=== PATIENT | male | born 1980 | race Caucasian/White ===

== ENCOUNTER 2020-04-08 13:27 | Emergency (ER) | payer OTHER, SELFPAY ==
--- NOTE | ~2020-04-08 | XR_ITS ---
EXAMINATION: XR chest 2V 04/08/2020 14:19 INDICATION: Heart fluttering. Dyspnea. PROCEDURE: 2 view chest COMPARISON: Comparison to multiple prior studies sequentially, with oldest reviewed study dated 07/2012. FINDINGS: The lungs are clear. The cardiomediastinal silhouette is within normal limits. There are no pleural effusions. There is no pneumothorax suspected. IMPRESSION: 1: NO ACUTE CARDIOPULMONARY DISEASE. Reviewed, dictated and finalized at location A.
[2020-04-08 13:31] VITALS: BP 153/100; PULSE 110; RESP 18; TEMP 36.9; O2SAT 100
--- NOTE | 2020-04-08 13:31 | ECG_ITS ---
Measurements Intervals [place] Rate: 96 P: 40 WV: 229 QRS: 46 QRSD: 93 T: 31 QT: 326 QTc: 414 Interpretive Statements SINUS RHYTHM WITH FIRST DEGREE AV BLOCK INCOMPLETE RIGHT BUNDLE BRANCH BLOCK ABNORMAL ECG Electronically Signed On 04-08-2020 14:05:25 CDT by Giovany Rock D.O.
[2020-04-08] MEDS: ASPIRIN 81 MG CHEWABLE TABLET 324 MG PO (13:52)
[2020-04-08 14:02] LABS: Basophils Percent Auto 0.3 % (0.2-1.2); Eosinophils Absolute Auto 0.1 K/mm3 (0-0.3); Eosinophils Percent Auto 1.3 % (0-4.4); Hematocrit 45.1 % (42.0-52.0); Hemoglobin 15.7 g/dL (14.0-18.0); Immature Granulocyte Absolute 0.02 K/mm3 (0.00-0.031); Immature Granulocyte Percent A 0.3 % (0-0.5); Lymphocytes Percent Auto 26.9 % (18.3-44.2); Mean Corpuscular HGB Conc 34.8 g/dl (32-36); Mean Corpuscular Hemoglobin 33.2 pg (26-34); Mean Corpuscular Volume 95.3 fl (80-100); Mean Platelet Volume 10.3 fl (7.4-10.4); Monocytes Absolute Auto 0.7 K/mm3 (0.1-0.6); Monocytes Percent Auto 11.4 % (2.6-8.5); Neutrophils Absolute Auto 3.8 K/mm3 (1.3-6.7); Neutrophils Percent Auto 59.8 % (45.5-73.1); Platelet Count Result 145 k/mm3 (150-375); Red Blood Count 4.73 M/mm3 (4.6-6.20); Red Cell Distribution Width 13.2 % (11.5-14.5); White Blood Count 6.3 K/mm3 (4.5-10.0)
[2020-04-08 14:11] LABS: INR 1.4
[2020-04-08 14:12] LABS: Partial Thromboplastin Time 35.1 SECONDS (22.3-36.8)
[2020-04-08 14:13] LABS: Blood Urea Nitrogen 16 mg/dL (9-20); Calcium 9.4 mg/dL (8.4-10.2); Carbon Dioxide 25 mmol/L (22-30); Chloride 104 mmol/L (98-107); Estimated CRCL calculation 117 ml/min; Estimated Glomerular Filt Rate > 60; Glucose 102 mg/dL (75-110); Potassium 3.6 mmol/L (3.4-5.0); Sodium 137 mmol/L (137-145)
--- NOTE | 2020-04-08 14:23 | ED.GENADULT ---
HPI - General Adult General Chief complaint: Arrhythmia/Palpitations Stated complaint: HEART FLUTTERING, SHAKING Time Seen by Provider: 04/08/20 13:48 History of Present Illness HPI narrative: Patient is a 39 y/o male complaining of heart palpitation and hand shaking for last 2 days. He states that his palpitation is mild and there is no alleviating or exacerbating factor. He denies any chest pain, SOB or fever. He has some mild chronic cough. He states he is on Xarelto for history of PE. Related Data Home Medications Medication Instructions Recorded Confirmed rivaroxaban 20 mg tablet 20 mg PO DAILY 09/21/19 venlafaxine 75 mg capsule,extended 75 mg PO BID cap 09/21/19 release 24 hr Allergies Allergy/AdvReac Type Severity Reaction Status Date / Time Sulfa (Sulfonamide Allergy Unknown Unknown Verified 04/08/20 13:33 Antibiotics) sulfamethizole Allergy Unknown Skin Verified 04/08/20 13:33 Reaction Review of Systems Constitutional: Constitutional: Denies chills, Denies fever(s), Denies headache(s) and Denies weakness Eyes: Eyes: Denies blurry vision ENT: Denies headache(s) and Denies neck pain Cardiovascular: Cardiovascular: Denies chest pain, Reports rapid heart rate and Denies dyspnea Respiratory: Respiratory: Denies cough and Denies dyspnea Gastrointestinal: Gastrointestinal: Denies abdominal pain, Denies diarrhea, Denies nausea and Denies vomiting Genitourinary: Genitourinary: Denies hematuria and Denies dysuria Musculoskeletal: Musculoskeletal: Denies back pain and Denies neck pain Neurologic: Denies headache(s), Reports tremor(s) (hands shaky) and Denies weakness [facility] Past Medical History Medical History (Updated 04/08/20 @ 17:59 by Alana Hood MD) Pulmonary embolism Social History Social History Smoking status: Never smoker Alcohol intake: current Gender identity (if verbalized by the patient): Male Exam Const: General: no acute distress and well developed Orientation/consciousness: oriented to person, oriented to place, oriented to time and patient oriented x3 HENMT: Head: normocephalic Ears: external ears normal General nose exam: Normal external nose present Eyes: General: appearance normal, both eyes and all related structures Conjunctivae: conjunctivae normal Neck: Neck: normal visual inspection and full ROM Chest: Chest palpation & inspection: normal inspection of the chest and no tenderness Resp: Effort & Inspection: normal respiratory effort Auscultation: clear to auscultation bilaterally Cardio: Rate: tachycardic Rhythm: regular rhythm GI: GI Palp: No abdominal tenderness and Yes Soft to palpation Skin: General skin exam: normal color and turgor normal Neuro: General: oriented to person, oriented to place, oriented to time and patient oriented x3 Cognition (Neuro): normal cognition Extrem: General: normal to inspection, full ROM and no pedal edema Psych: Appearance: grossly normal Mental Status: mental status grossly normal Affect: normal affect Course Consultations Consultation #1: Discussed with Dr. Romeo(PCP), who recommends starting Toprol 25 mg daily and have patient follow up with him in a few days. Date: 04/08/20 Time: 17:48 Vital Signs Vital signs: Vital Signs Temperature 36.9 C 04/08/20 13:31 Pulse Rate 110 H 04/08/20 13:31 Respiratory Rate 18 04/08/20 13:31 Blood Pressure 153/100 H 04/08/20 13:31 Pulse Oximetry 100 04/08/20 13:31 Temperature 36.9 C 04/08/20 13:31 Pulse Rate 106 H 04/08/20 18:18 Respiratory Rate 18 04/08/20 18:18 Blood Pressure 167/102 H 04/08/20 18:18 Pulse Oximetry 98 04/08/20 18:18 Medical Decision Making Vital Signs Vital Signs: Vital Signs Temperature 36.9 C 04/08/20 13:31 Pulse Rate 110 H 04/08/20 13:31 Respiratory Rate 18 04/08/20 13:31 Blood Pressure 153/100 H 04/08/20 13:31 Pulse Oximetry 1
[2020-04-08 14:25] LABS: Troponin I < 0.012 ng/mL (0.000-0.034)
[2020-04-08 14:37] VITALS: BP 143/99; PULSE 98; RESP 19; O2SAT 97
[2020-04-08 15:42] VITALS: BP 147/97; PULSE 94; RESP 15; O2SAT 97
[2020-04-08 16:43] VITALS: BP 150/93; PULSE 94; RESP 17; O2SAT 99
[2020-04-08 17:12] LABS: Troponin I < 0.012 ng/mL (0.000-0.034)
[2020-04-08 18:18] VITALS: BP 167/102; PULSE 106; RESP 18; O2SAT 98
== END 2020-04-08 18:28 | disposition home or self-care (01) ==
PROVIDERS: Emergency Provider Emergency Medicine; PCP Family Medicine
DX: R00.2 Palpitations (principal); R25.9 Unspecified abnormal involuntary movements; Z86.711 Personal history of pulmonary embolism; Z79.01 Long term (current) use of anticoagulants; I44.0 Atrioventricular block, first degree; I45.10 Unspecified right bundle-branch block
CPT/HCPCS: 36415; 71046; 80048; 84443; 84484; 85025; 85610; 85730; 93005; 99284; A9270

== ENCOUNTER 2021-05-09 11:38 | Emergency (ER) | payer OTHER, SELFPAY ==
--- NOTE | ~2021-05-09 | CT_ITS ---
EXAMINATION: CT brain wo con DATE: 05/09/2021 12:30 INDICATION: Fall, striking forehead. Frontal headache. Patient on anticoagulant therapy. TECHNIQUE: Computed tomography (CT) of the head was performed without intravenous contrast. The mA wa s adjusted according to patient size. Iterative reconstruction technique was employed. Exam dose: 68 1.00 mGy-cm total exam DLP. COMPARISON: December 29, 2008 MRI brain/brainstem FINDINGS: No intracranial mass lesion or hemorrhage or cerebrovascular accident. No midline shift or mass effect effect. Normal ventricular size. No subdural or epidural hematoma. No fracture or bone destruction of the cranial vault. Included paranasal sinuses and mastoid air cells are unremarkable. IMPRESSION: No significant abnormality Reviewed, dictated and finalized at Location A. Reviewed, dictated and finalized at location A. IMPRESSION: No significant abnormality
[2021-05-09 12:00] VITALS: BP 174/98; PULSE 96; RESP 20; TEMP 35.9; O2SAT 100
--- NOTE | 2021-05-09 13:09 | ED.HEATRA ---
HPI - Head Injury General Chief complaint: Head Injury Stated complaint: head injury Time Seen by Provider: 05/09/21 12:59 Source: patient Mode of arrival: ambulatory Limitations: no limitations History of Present Illness HPI Narrative: Patient is a 40 year old male who presents with complaints of headache after fall. Patient reports trip and fall hitting table with forehead last pm. Patient reports he is on Xarelto because of PE in the past. He denies LOC. He denies neck pain or other injuries. Patient reports mild nausea which has resolved at this time. Patient denies other significant medical history. MD Complaint: head injury and fall Related Data Allergies Allergy/AdvReac Type Severity Reaction Status Date / Time Sulfa (Sulfonamide Allergy Unknown Unknown Verified 05/09/21 12:06 Antibiotics) sulfamethizole Allergy Unknown Skin Verified 05/09/21 12:06 Reaction Review of Systems Review of Systems: Narrative: CONSTITUTIONAL: Denies fever, chills, or sweats. EYES: Denies visual changes, redness, or discharge. ENT: Denies rhinorrhea, congestion, sore throat, or otalgia. CARDIOVASCULAR: Denies chest pain, palpitations, or edema. RESPIRATORY: Denies cough or dyspnea. GASTROINTESTINAL: Denies abdominal pain, nausea, vomiting, or diarrhea. GENITOURINARY: Denies dysuria or hematuria. SKIN: Denies rash or itching. MUSCULOSKELETAL: Denies back pain, joint pain, or myalgia. NEUROLOGIC: Reports headache and lightheaded PSYCHIATRIC: Denies anxiety or depression. [facility] Past Medical History Medical History Pulmonary embolism Pulmonary embolism Strain of lumbar region Unspecified internal derangement of knee Venous embolism and thrombosis Social History Social History Smoking status: Never smoker Second hand tobacco smoke exposure: No Alcohol intake: current Drinks per week: 8 Substance use: never Substance use type: does not use Gender identity (if verbalized by the patient): Male Spiritual care concerns: No Agree to blood products: Yes Comments At the time of signature, I have reviewed and agree with nursing past medical, surgical, social, and family history unless otherwise noted. Please see nursing chart for further information. There is no relevant family history pertinent to the presenting complaint. Exam Narrative: Exam Narrative: GENERAL: Well-appearing, well-nourished, and in no acute distress. HEAD: Normocephalic, atraumatic. EYES: EOMI. No redness or drainage. Conjunctiva are normal. ENT: Mucous membranes pink and moist. CHEST: No respiratory distress. Clear to auscultation. HEART: Regular rate and rhythm. No murmur appreciated. Normal peripheral pulses. GI: Soft, nontender without rebound, or guarding. No distention. Bowel sounds normal in all quadrants. MUSCULOSKELETAL: No bony tenderness. EXTREMITIES: Normal range of motion. SKIN: Small abrasion to left forehead noted. NEURO: No focal deficits. Alert and oriented x3. Gait steady. PSYCH: Normal affect. No signs of depression or anxiety. Course Course Emergency Course: Patient left without discharge papers 1323. Vital Signs Vital signs: Vital Signs Temperature 35.9 C L 05/09/21 12:00 Pulse Rate 96 05/09/21 12:00 Respiratory Rate 20 05/09/21 12:00 Blood Pressure 174/98 H 05/09/21 12:00 Pulse Oximetry 100 05/09/21 12:00 Temperature 35.9 C L 05/09/21 12:00 Pulse Rate 96 05/09/21 12:00 Respiratory Rate 20 05/09/21 12:00 Blood Pressure 174/98 H 05/09/21 12:00 Pulse Oximetry 100 05/09/21 12:00 Reviewed. Patient has been instructed to follow-up with his PCP regarding his blood pressure. MDM - Head Injury MDM Narrative Medical decision making narrative: Patient CT shows no abnormality or bleed. Discussed with patient likely concussion. Discussed taking Tylenol for pain and re
== END 2021-05-09 13:24 | disposition home or self-care (01) ==
PROVIDERS: Emergency Provider Nurse Practitioner; PCP Family Medicine
DX: S09.90XA Unspecified injury of head, initial encounter (principal); Z86.711 Personal history of pulmonary embolism; Z79.01 Long term (current) use of anticoagulants; W01.190A Fall on same level from slipping, tripping and stumbling with subsequent striking against furniture, initial encounter
CPT/HCPCS: 70450; 99284

== ENCOUNTER 2021-10-22 07:28 | Outpatient (CLI) | payer OTHER, SELFPAY ==
--- NOTE | ~2021-10-22 | XR_ITS ---
EXAMINATION: XR chest 2V 10/22/2021 09:32 INDICATION: Palpitations. Cough. PROCEDURE: 2 view chest COMPARISON: 04/08/2020 FINDINGS: The lungs are clear. The cardiomediastinal silhouette is within normal limits. There are no pleural effusions. There is no pneumothorax suspected. IMPRESSION: 1: NO ACUTE CARDIOPULMONARY DISEASE. Reviewed, dictated and finalized at location A. THODONTIST
--- NOTE | 2021-10-22 08:03 | ECHO_ITS ---
Patient Info Name: Zion León Age: 40 years : 1980 Gender: Male Ht: 76 in Wt: 270 lbs BSA: 2.59 m2 HR: 104 bpm BP: 168 / 114 mmHg Technical Quality: Good Exam Date: 10/22/2021 8:17 AM Exam Location: [facility] Patient Status: Outpatient Admit Date: 10/22/2021 Staff Ordering Physician: Carito Romeo MD Acute Coordinator: Robert Patel, RENATE, RT Attending Provider: Carito Romeo MD Referring Physician: Agueda KAT; Exam Type: CA echo doppler color flow Study Info Indications R00.2 - Palpitations Complete two-dimensional, color flow and Doppler transthoracic echocardiogram is performed. Strain analysis performed. Summary 1. Complete two-dimensional, color flow and Doppler transthoracic echocardiogram is performed. 2. Left ventricular chamber dimension is normal. 3. Left ventricular systolic function is normal, estimated at 55-60%. 4. There is mildly increased left ventricular wall thickness. 5. The left ventricular diastolic function is grade I diastolic dysfunction. 6. E/e' 5 is not elevated. 7. Global longitudinal strain is abnormal at -14.6%. 8. There is trace tricuspid valve regurgitation. 9. The aortic root size at the sinus of Valsalva is moderately dilated at 4.7 cm. Left Ventricle E/e' 5 is not elevated. Global longitudinal strain is abnormal at -14.6%. Left ventricular chamber dimension is normal. Left ventricular systolic function is normal, estimated at 55-60%. There is mildly increased left ventricular wall thickness. The left ventricular diastolic function is grade I diastolic dysfunction. Right Ventricle Right ventricular systolic function is normal and with normal TAPSE 2.3 cm. Right ventricular chamber dimension is normal. Left Atria Left atrial chamber dimension is normal. Right Atria Right atrial chamber dimension is normal. Aortic Valve The aortic valve is trileaflet. There is no aortic valve stenosis. There is no aortic valve regurgitation. Pulmonic Valve There is no pulmonic regurgitation. Mitral Valve There is no mitral valve stenosis. There is no mitral valve regurgitation. Tricuspid Valve RVSP is not calculated due to an inadequate TR jet. There is trace tricuspid valve regurgitation. Pericardium/Pleural There is no pericardial effusion. Inferior Vena Cava Normal inferior vena cava with >50% collapse upon inspiration consistent with normal right atrial pressure, 5 mmHg. Aorta The aortic root size at the sinus of Valsalva is moderately dilated at 4.7 cm. Left Ventricular Outflow Tract Name Value Normal LVOT 2D LVOT Diameter 2.5 cm LVOT Doppler LVOT Peak Gradient 2 mmHg LVOT Mean Gradient 1 mmHg LVOT VTI 12 cm LVOT VTI/AV VTI Ratio 0.9 LVOT Stroke Volume 62 ml LVOT CO 5.9 l/min LVOT CI 2.3 l/min/m2 Mitral Valve
--- NOTE | 2021-10-22 13:17 | PFT_ITS ---
The report was recreated on November 07, 2021. Original report was signed by Dr. Farhat Rivera on October 22, 2021 at 1317. PFT Procedure Performed PFT Procedure Performed Spirometry with Pre/Post Bronchodilator Plethysmography (Lung Vol) Diffusing Cap (DLCO) Flow Vol Loop PFT Interpretation This is a pulmonary function test with pre and post-bronchodilator spirometry, plethysmography and diffusing capacity. The test was performed and results interpreted in accordance with the 2019 and 2005 ATS/ERS Task Force guidelines respectively using the Global Lung Function Initiative-2012 reference equations. Patient demonstrated good effort and cooperation. Reproducibility criteria were met. The quality of the pre bronchodilator spirometry maneuver was Grade A and post bronchodilator spirometry maneuver was Grade A. Findings: Spirometry: The contour the inspiratory and expiratory flow tracing are normal. The pre bronchodilator FVC is 5.79 L, 108% predicted. The pre bronchodilator FEV1 is 4.54 L, 106% predicted. The FEV1: FVC ratio is 78%. The post bronchodilator FVC is 5.83 L, representing 1% increase. The post bronchodilator FEV1 is 4.77, representing a 5% increase. The post bronchodilator FEV1: FVC ratio was 82%. Plethysmography: The total lung capacity is 8.18 L, 114% predicted. The functional residual capacity is 2.69 L, 69% predicted. The residual volume is 2.21 L, 108% predicted. Diffusing capacity: The absolute diffusion capacity is 29.7, 85% predicted. The diffusing capacity corrected for alveolar volume is 4.08, 91% predicted. Impression: The spirometry is normal without evidence of an obstructive abnormality. There is no significant improvement after inhaling a single dose of albuterol. The lung volumes are normal. The diffusing capacity is normal. There are no prior studies for comparison This dictation may have been done utilizing a voice recognition system. Attempts have been made to correct errors. However, there may be uncorrected grammatical, spelling, and recognition errors present. Report Initialized date/time: Farhat Rivera MD 10/22/217 Electronically signed by: Farhat Rivera MD 10/22/21 1317 This dictation may have been done utilizing a voice recognition system. Attempts have been made to correct errors. However, there may be uncorrected grammatical, spelling, and recognition errors present. Dictated By: Farhat Rivera MD 10/22/21 1317 MTDD
== END 2021-10-22 07:29 | disposition home or self-care (01) ==
PROVIDERS: PCP Family Medicine; Visit Provider Family Medicine
DX: R00.2 Palpitations (principal); Z86.711 Personal history of pulmonary embolism; R06.02 Shortness of breath
CPT/HCPCS: 71046; 93306; 94060; 94726; 94729

== ENCOUNTER → 2022-09-09 09:35 | Outpatient (CLI) | payer OTHER, SELFPAY ==
--- NOTE | ~2022-09-09 | US_ITS ---
EXAMINATION: US abdomen limited DATE: 09/09/2022 09:54 INDICATION: Abdominal pain. TECHNIQUE: Multiple grayscale and Doppler ultrasound images of the abdomen were obtained. COMPARISON: Chest CT 04/09/2012 FINDINGS: The visualized portions of the head and body of the pancreas are normal. There is diffuse h epatic steatosis. No liver surface nodularity. There is normal flow in main portal vein. The gallblad terri is normal in size. No gallstones or gallbladder wall thickening. There is no sonographic Patel s ign. The common duct is normal and measures 3 mm. IMPRESSION: 1. Diffuse hepatic steatosis. Reviewed, dictated and finalized at location A. YSIS SPECIALIST
== END ==
PROVIDERS: PCP Family Medicine; Visit Provider Family Medicine
DX: K76.0 Fatty (change of) liver, not elsewhere classified (principal)
CPT/HCPCS: 76705

== ENCOUNTER 2022-11-05 07:50 | Outpatient (CLI) | payer OTHER, SELFPAY ==
--- NOTE | ~2022-11-05 | NM_ITS ---
EXAMINATION: NM hepatobiliary wo pharm DATE: 11/05/2022 10:06 INDICATION: Episodic severe abdominal pain. COMPARISON: Ultrasound 09/09/2022 TECHNIQUE: 5.0 mCi Tc-99m mebrofenin (Choletec) was administered intravenously. Scintigraphic images of the abdomen were obtained for one hour. Then, the patient drank 8 oz Ensure, and imaging was cont inued for 60 minutes. FINDINGS: There is normal clearance of radiotracer from the blood pool. There is homogeneous tracer u ptake by the liver. Activity progresses to the bowel and gallbladder. Gallbladder ejection fraction (GBEF) was 57%. Note that with this technique, normal GBEF >= 33%. IMPRESSION: 1. Normal hepatobiliary scintigraphy. Reviewed, dictated and finalized at location A. E[employer]OR [employer]ERC[employer]ENCE
== END 2022-11-05 07:51 | disposition home or self-care (01) ==
PROVIDERS: PCP Family Medicine; Visit Provider Family Medicine
DX: R10.9 Unspecified abdominal pain (principal)
CPT/HCPCS: 78226; A9537

== ENCOUNTER 2022-11-11 16:07 | Emergency (ER) | payer OTHER, SELFPAY ==
[2022-11-11] VITALS (8 sets, daily range): BP systolic 118–139; BP diastolic 68–83; PULSE 105–134; RESP 15–98; TEMP 36.4; O2SAT 97–99
--- NOTE | ~2022-11-11 | CT_ITS ---
EXAMINATION: CT abdomen pelvis w con DATE: 11/11/2022 17:24 INDICATION: Abdominal pain. Nausea and vomiting. TECHNIQUE: Computed tomography (CT) of the abdomen and pelvis was performed with 100 mL Omnipaque 350 intravenous contrast. Automated exposure control and iterative reconstruction technique were employe d. The dose-length product was 1441.20 mGy-cm. COMPARISON: Ultrasound abdomen 09/09/2022 FINDINGS: The visualized portions of the lung bases demonstrate minimal atelectasis on the left. No p leural effusion. The heart size is normal. No pericardial effusion. There is diffuse hepatic steatosi s. The gallbladder, spleen, pancreas, adrenal glands, and kidneys are normal. There are no dilated lo ops of bowel. There is diverticulosis of the colon without evidence of diverticulitis. The appendix i s not visualized. There is an umbilical hernia containing fat. There is a left inguinal hernia contai rosasna fat. There are no pathologically enlarged lymph nodes. There is no free intraperitoneal fluid. T here is severe spondylosis at L4-L5 and mild spondylosis at other levels. IMPRESSION: 1. Diffuse hepatic steatosis. 2. Umbilical hernia containing fat. 3. Left inguinal hernia containing fat. Reviewed, dictated and finalized at location E. HANA DEVELOPER
[2022-11-11 16:32] LABS: Basophils Percent Auto 0.6 % (0.2-1.2); Eosinophils Percent Auto 0.3 % (0-4.4); Hematocrit 43.2 % (42.0-52.0); Hemoglobin 13.9 g/dL (14.0-18.0); Immature Granulocyte Absolute 0.02 K/mm3 (0.00-0.031); Immature Granulocyte Percent A 0.3 % (0-0.5); Lymphocytes Absolute Auto 2.48 K/mm3 (0.9-3.2); Lymphocytes Percent Auto 35.2 % (18.3-44.2); Mean Corpuscular HGB Conc 32.2 g/dl (32-36); Mean Corpuscular Hemoglobin 26.8 pg (26-34); Mean Corpuscular Volume 83.2 fl (80-100); Monocytes Absolute Auto 0.6 K/mm3 (0.1-0.6); Monocytes Percent Auto 7.9 % (2.6-8.5); Neutrophils Absolute Auto 3.9 K/mm3 (1.3-6.7); Neutrophils Percent Auto 55.7 % (45.5-73.1); Platelet Count Result 227 k/mm3 (150-375); Red Blood Count 5.19 M/mm3 (4.6-6.20); Red Cell Distribution Width 18.5 % (11.5-14.5); White Blood Count 7.1 K/mm3 (4.5-10.0)
[2022-11-11 16:43] LABS: Alanine Aminotransferase 138 U/L (6-50); Albumin Level 4.8 g/dL (3.5-5.1); Alkaline Phosphatase 120 U/L (38-126); Anion Gap 16 mmol/L (8-16); Aspartate Amino Transferase 121 U/L (17-59); Bilirubin,Total 0.8 mg/dL (0.2-1.3); Blood Urea Nitrogen 5 mg/dL (9-20); Calcium 8.7 mg/dL (8.4-10.2); Carbon Dioxide 20 mmol/L (22-30); Chloride 103 mmol/L (98-107); Estimated CRCL calculation 110 ml/min; Estimated Glomerular Filt Rate > 60; Glucose 131 mg/dL (65-110); Lipase 121 U/L (23-300); Potassium 3.5 mmol/L (3.4-5.0); Sodium 139 mmol/L (137-145)
[2022-11-11 16:52] LABS: Platelet Estimate Adequate (Adequate)
[2022-11-11 16:53] LABS: Schistocytes None Seen (NORMAL)
--- NOTE | 2022-11-11 16:55 | ED.GENADULT ---
HPI - General Adult General Chief complaint: Nausea/Vomiting/Diarrhea Stated complaint: vomiting Time Seen by Provider: 11/11/22 16:15 Source: RN notes reviewed History of Present Illness HPI narrative: Patient presents emergency department from home for abdominal pain. Patient states he has been having ongoing abdominal pain issues for the past 1 year but states they have worsened over the past 12 hours states abdominal pain is located across the bilateral upper abdomen described as achy in nature and does not radiate associate with numerous episodes of nausea vomiting. Denies any fevers or chills chest pain shortness of breath diarrhea or any other symptoms states he has had work-up to include gallbladder ultrasound and work-up by GI he states he was recently prescribed omeprazole and take the first dose today patient does no regular alcohol use Related Data Home Medications Medication Instructions Recorded Confirmed apixaban 2.5 mg tablet (Eliquis) mg 11/11/22 lisinopril 10 mg tablet mg 11/11/22 omeprazole 40 mg capsule,delayed mg 11/11/22 release paroxetine HCl 25 mg mg PO 11/11/22 tablet,extended release 24 hr Allergies Allergy/AdvReac Type Severity Reaction Status Date / Time Sulfa (Sulfonamide Allergy Unknown Unknown Verified 11/11/22 19:33 Antibiotics) sulfamethizole Allergy Unknown Skin Verified 11/11/22 19:33 Reaction Review of Systems Review of Systems: Gen.: Denies fevers or chills ENT: Denies congestion Respiratory: Denies shortness of breath or cough CV: Denies chest pain or palpitations GI: See HPI Musculoskeletal: Denies back pain or muscle pain Neuro: Denies numbness, tingling, weakness or focal weakness Skin: Denies rash Except as documented, all other systems reviewed and negative PMF Past Medical History Medical History Palpitations Pulmonary embolism Pulmonary embolism Strain of lumbar region Unspecified internal derangement of knee Venous embolism and thrombosis Social History Social History Smoking status: Never smoker Second hand tobacco smoke exposure: No Alcohol intake: current Drinks per week: 8 Substance use: never Substance use type: does not use Gender identity (if verbalized by the patient): Male Spiritual care concerns: No Agree to blood products: Yes Exam Narrative: APPEARANCE: No acute distress, nontoxic, resting in bed HEENT: Normocephalic, atraumatic, OMM RESPIRATORY: No respiratory distress, clear to auscultation bilaterally with no rhonchi wheezing or rales CARDIOVASCULAR: RRR s murmur ABDOMINAL: Soft nondistended tender to palpation right upper quadrant and left upper quadrant no tenderness in the right lower quadrant and left lower quadrant MUSCULOSKELETAl: Moves all extremities. No clubbing, cyanosis or edema. NEURO: Awake and alert. Following commands, speech normal, no focal deficits SKIN:: Warm, dry. Normal Color PSYCHIATRIC: Normal affect/mood Course Course Emergency Course: Reviewed old records patient's liver enzymes are consistent with prior Patient states he is feeling much better at this time. He is able to eat and drink in the ED with no emesis. Discussed with the patient has mild tachycardia and revealed records patient has consistently mild tachycardia and states that he does have mildly best heart rate at all times Patient states that they are feeling much better at this time. States abdominal pain has resolved. Repeat abdominal exam shows the patient's abdomen to be soft and nontender. Discussed with patient results of workup and diagnosis. Discussed need for follow-up with primary care physician, reasons to return to the emergency department in proper use of medication. Patient understands and agrees to current treatment plan. He did take his first dose of omeprazole today states he does have a pre
[2022-11-11] MEDS: ONDANSETRON INJ 4 MG/2 ML VIAL IV PUSH (17:02)
[2022-11-11] MEDS: SODIUM CHLORIDE 0.9% IV 1,000 ML 999 ML IV CONT ×2 (17:02→18:10)
[2022-11-11] MEDS: FAMOTIDINE 20 MG/2 ML VIAL IV PUSH (17:03)
[2022-11-11 17:12] LABS: Appearance Urine Clear (Clear); Bilirubin Urine Negative (Negative); Blood Urine Trace-intact (Negative); Color Urine Yellow (Yellow); Glucose Urine UA Negative (Negative); Ketones Urine Trace mg/dL (Negative); Leukocyte Esterase Ur Negative LEU/UL (Negative); Nitrate Urine Negative (Negative); Protein Urine Trace mg/dL (Negative); Specific Grav Ur 1.015 (1.001-1.035); Urobilinogen Urine 0.2 mg/dL (<2.0)
[2022-11-11 17:17] LABS: Add Urine Microscopic? YES; Squamous Epithelial Cell Urine Rare /hpf (Few); WBC Urine 0-3 /hpf
[2022-11-11] MEDS: PROMETHAZINE HCL 25 MG/ML AMPUL 12.5 MG IV PUSH (18:22)
== END 2022-11-11 20:59 | disposition home or self-care (01) ==
PROVIDERS: Emergency Medicine; Emergency Provider Emergency Medicine; PCP Family Medicine
DX: R10.12 Left upper quadrant pain (principal); R10.11 Right upper quadrant pain; R11.2 Nausea with vomiting, unspecified; Z86.711 Personal history of pulmonary embolism; Z79.01 Long term (current) use of anticoagulants; K76.0 Fatty (change of) liver, not elsewhere classified; K40.90 Unilateral inguinal hernia, without obstruction or gangrene, not specified as recurrent; K42.9 Umbilical hernia without obstruction or gangrene
CPT/HCPCS: 36415; 74177; 80053; 81001; 83690; 85025; 96361; 96374; 96375; 99284; A9270; J2405; J2550; J7030; Q9967

== ENCOUNTER 2022-12-04 11:52 | Outpatient (CLI) | payer OTHER, SELFPAY ==
[2022-12-04 13:27] LABS: Alanine Aminotransferase 402 U/L (6-50); Albumin Level 4.5 g/dL (3.5-5.1); Alkaline Phosphatase 106 U/L (38-126); Aspartate Amino Transferase 438 U/L (17-59); Bilirubin,Total 0.9 mg/dL (0.2-1.3)
[2022-12-04 14:36] LABS: Iron 33 ug/dL (49-181)
[2022-12-04 14:47] LABS: Percent Iron Saturation 8 % (20-50)
[2022-12-07 20:46] LABS: Actin Antibody (IgG) <20 U (<20)
[2022-12-08 11:51] LABS: Mitochondrial (M2) Ab (IgG) <=20.0 U (<=20.0)
[2022-12-08 19:52] LABS: Alpha-1-Antitrypsin, QN 158 mg/dL (83-199); Ceruloplasmin 28 mg/dL (18-36)
[2022-12-08 21:36] LABS: LKM 1 Antibody <=20.0 U (<=20.0)
[2022-12-10 15:42] LABS: Alpha Fetoprotein Tumor Marker 6.2 ng/mL (<6.1)
[2022-12-14 19:28] LABS: ALT 278 U/L (9-46); Alpha-2-Macroglobulin 123 mg/dL (106-279); Apolipoprotein A1 145 mg/dL (94-176); Fibrosis Score 0.19; Fibrosis Stage F0; GGT 268 U/L (3-95); Haptoglobin 177 mg/dL (43-212); Necroinflammat Act Grade A3; Total Bilirubin 0.6 mg/dL (0.2-1.2)
== END 2022-12-04 11:53 | disposition home or self-care (01) ==
LOC: ANHLAB 11:53
PROVIDERS: PCP Family Medicine; Visit Provider Nurse Practitioner
DX: K76.0 Fatty (change of) liver, not elsewhere classified (principal); R10.9 Unspecified abdominal pain; R79.89 Other specified abnormal findings of blood chemistry
CPT/HCPCS: 36415; 80076; 81596; 82103; 82105; 82390; 82728; 83516; 83520; 83540; 83550; 86235; 86376

== ENCOUNTER 2022-12-08 16:04 | Outpatient (CLI) | payer OTHER, SELFPAY ==
[2022-12-08 16:36] LABS: Prothrombin Time 13.1 Seconds (11.1-14.7)
[2022-12-08 16:37] LABS: Creatine Kinase 95 U/L (55-170)
[2022-12-08 19:00] LABS: Hepatitis B Surface Antigen Negative (Negative)
[2022-12-08 19:05] LABS: HAV RESULT Negative (Negative); Hepatitis B Core IgM Result Negative (Negative)
[2022-12-08 19:17] LABS: Hepatitis C Virus Antibody Negative (Negative)
== END 2022-12-08 16:05 | disposition home or self-care (01) ==
LOC: ANHLAB 16:05
PROVIDERS: PCP Family Medicine; Visit Provider Nurse Practitioner
DX: R79.89 Other specified abnormal findings of blood chemistry (principal); K76.0 Fatty (change of) liver, not elsewhere classified
CPT/HCPCS: 36415; 80074; 82550; 85610; 86038

== ENCOUNTER 2023-01-08 01:56 | Day surgery (SDC) | payer OTHER, SELFPAY ==
[2022-12-30 09:16] VITALS: BMI 34.4
[2023-01-08 11:58] VITALS: BP 143/103; PULSE 104; RESP 18; TEMP 36.2; O2SAT 99
[2023-01-08] MEDS: LACTATED RINGERS 1,000 ML 150 ML IV CONT (12:06)
--- NOTE | 2023-01-08 12:40 | WPDANESEPPF ---
Anes - Initial Pre Proc Eval Procedure: Operation Date: 01/08/23 13:15 Proposed Procedures p Esophagogastroduodenoscopy & Colonoscopy - Jamari Meyers MD Date/Time: 01/08/23 12:40 Surgeon: Jamari Meyers MD Pre Op Diagnosis: abdominal pain, [place] Patient Data Age: 42 Gender: M Height: 1.91 m Weight: 122.8 kg Last Vital Signs Temp 36.2 C L 01/08/23 11:58 Pulse 104 H 01/08/23 11:58 Resp 18 01/08/23 11:58 BP 143/103 H 01/08/23 11:58 Pulse Ox 99 01/08/23 11:58 O2 Del Method Room Air 01/08/23 11:58 Allergies Allergy/AdvReac Type Severity Reaction Status Date / Time Sulfa (Sulfonamide Allergy Intermediate Hives Verified 01/08/23 11:57 Antibiotics) sulfamethizole Allergy Unknown Hives Verified 01/08/23 11:57 Home Medications Medication Instructions Recorded Confirmed Type apixaban 2.5 mg tablet (Eliquis) 2.5 mg PO BID 11/11/22 12/30/22 History omeprazole 40 mg capsule,delayed 40 mg PO DAILY 11/11/22 12/30/22 History release ondansetron 4 mg disintegrating 4 mg PO Q6H PRN nausea and 11/11/22 12/30/22 Rx tablet vomiting #10 tabs paroxetine HCl 25 mg 25 mg PO DAILY 11/11/22 12/30/22 History tablet,extended release 24 hr lisinopril 10 mg tablet 10 mg PO DAILY #30 tabs 11/23/22 12/30/22 Rx vitamin E 1 cap PO DAILY 12/30/22 12/30/22 History Patient hx anesthesia problems: none Family hx anesthesia problems: none Results Review: All pre-operative results and documents have been reviewed as part of the pre-operative evaluation. [facility] Past Medical History Medical History Alcohol use Colon cancer screening Elevated LFTs Low serum iron Palpitations Pulmonary embolism Pulmonary embolism Strain of lumbar region Unspecified internal derangement of knee Upper abdominal pain Venous embolism and thrombosis Social History Social History Smoking status: Never smoker Second hand tobacco smoke exposure: No Alcohol intake: current Drinks per week: 4 Alcohol use details: DRINKS Substance use: never Substance use type: does not use Living arrangements: with family Occupation/Education: occupation Gender identity (if verbalized by the patient): Male Spiritual care concerns: No Agree to blood products: Yes Anes - Eval Final PreProcedure Day of Procedure 01/08/23 12:40 Heart: regular rate and rhythm Lungs: clear to auscultation Airway: Mallampati scale class II Neurological: alert and oriented Last oral intake: >/= 8 hours ASA classification: III Emergent: no Anesthetic plan: proceed Anesthesia type and monitoring: general GIVS and standard monitoring Results Review: All pre-operative results and documents have been reviewed as part of the pre-operative evaluation. Informed Consent: The patient's anesthetic plan and its attendant risks and benefits were discussed with the patient/family/POA. Questions were solicited and answers provided to the satisfaction of the patient/family/POA.
--- NOTE | 2023-01-08 13:15 | WPDHPUPDATE1 ---
History and Physical Update Update Date/Time: 01/08/23 13:15 History and Physical has been reviewed, including an updated exam of the patient. There are NO changes in the patient's condition. Risks, benefits, and alternatives have been discussed and questions answered. Patient agrees to proceed with procedure.
[2023-01-08 13:56] VITALS: BP 128/88; PULSE 109; RESP 20; O2SAT 100
[2023-01-08 14:06] VITALS: BP 124/86; PULSE 103; RESP 20; O2SAT 100
[2023-01-08 14:16] VITALS: BP 132/84; PULSE 92; RESP 20; O2SAT 100
== END 2023-01-08 14:30 | disposition home or self-care (01) ==
PROVIDERS: PCP Family Medicine; Visit Provider Internal Medicine Gastroenterology
PROC: 0DJ08ZZ Inspection of Upper Intestinal Tract, Via Natural or Artificial Opening Endoscopic (ICD-10-PCS; CPT 43235; principal; 2023-01-08 13:15)
DX: Z12.11 Encounter for screening for malignant neoplasm of colon (principal); R10.13 Epigastric pain; D12.3 Benign neoplasm of transverse colon; E61.1 Iron deficiency; K57.30 Diverticulosis of large intestine without perforation or abscess without bleeding; K44.9 Diaphragmatic hernia without obstruction or gangrene; K64.8 Other hemorrhoids; R79.89 Other specified abnormal findings of blood chemistry; Z86.718 Personal history of other venous thrombosis and embolism
CPT/HCPCS: 45385; 43239; 88305; J2704; J7120

== ENCOUNTER 2023-01-26 08:59 | Emergency (ER) | payer OTHER, SELFPAY ==
[2023-01-26] VITALS (14 sets, daily range): BP systolic 148–187; BP diastolic 98–110; PULSE 101–136; RESP 11–21; TEMP 36.8; O2SAT 97–100
--- NOTE | ~2023-01-26 | CT_ITS ---
EXAMINATION: CT brain wo con DATE: 01/26/2023 12:51 INDICATION: Headache. TECHNIQUE: Computed tomography (CT) of the head was performed without intravenous contrast. The mA wa s adjusted according to patient size. Iterative reconstruction technique was employed. The dose-lengt h product was 681.00 mGy-cm. 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 There is no intracranial hemorrhage, acute infarction, or abnormal intracranial mass lesion. The ventricles are normal in size. The orbits are normal. There is mild mucosal thickening in the eth moid sinuses. The mastoid air cells are normal. IMPRESSION: 1. 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 Reviewed, dictated and finalized at location A. IMPRESSION: 1. 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
--- NOTE | ~2023-01-26 | XR_ITS ---
EXAMINATION: XR chest 2V DATE: 01/26/2023 09:33 INDICATION: Weakness. Lightheadedness. TECHNIQUE: Frontal and lateral views of the chest were obtained. COMPARISON: Chest 2 views 10/22/2021, CT abdomen and pelvis 11/11/22 FINDINGS: The chest demonstrates clear lungs without pneumonia, pleural effusion, or pneumothorax. Th e heart size is normal. IMPRESSION: 1. No acute cardiopulmonary disease. Reviewed, dictated and finalized at location A.
--- NOTE | ~2023-01-26 | CT_ITS ---
EXAMINATION: CTA chest PE protocol DATE: 01/26/2023 15:29 INDICATION: Tachycardia TECHNIQUE: Computed tomography angiography (CTA) of the chest was performed with 100 mL Omnipaque-350 intravenous contrast timed to evaluate the pulmonary arteries. Coronal maximum intensity projection 3D-reconstructions were created by the technologist. The dose-length product (DLP) was 998.47 mGy-cm. Automated exposure control and iterative reconstruction technique were employed. COMPARISON: 04/09/2012 FINDINGS: The pulmonary arteries are well-opacified. There are eccentric filling defects in pulmonary arterial branches of the left lower lobe which likely reflect chronic emboli. No definite acute pulm onary embolus is identified. The lungs are free of acute opacities. No pleural effusion or pneumothor ax. No pathologically enlarged thoracic lymph nodes are identified. The heart size is normal. The jeyson er is diffusely low in attenuation when compared with the spleen, consistent with hepatic steatosis. There is mild thoracic spondylosis. IMPRESSION: 1. Areas of eccentric filling defects in pulmonary arterial branches of the left lower lobe, likely c hronic emboli. No definite acute pulmonary emboli identified. Reviewed, dictated and finalized at location F. IMPRESSION: 1. Areas of eccentric filling defects in pulmonary arterial branches of the lef t lower lobe, likely chronic emboli. No definite acute pulmonary emboli identif ied.
--- NOTE | 2023-01-26 09:02 | ECG_ITS ---
Measurements Intervals [place] Rate: 131 P: 238 MN: 155 QRS: 49 QRSD: 92 T: 40 QT: 310 QTc: 459 Interpretive Statements SINUS TACHYCARDIA BASELINE ARTIFACT- I, III, AVL ABNORMAL ECG COMPARED TO ECG 04/08/2020 13:46:45 SINUS TACHYCARDIA NOW PRESENT Electronically Signed On 01-26-2023 9:21:16 CDT by Giovany Rock D.O.
[2023-01-26 09:45] LABS: Basophils Percent Auto 0.3 % (0.2-1.2); Hematocrit 44.4 % (42.0-52.0); Hemoglobin 14.2 g/dL (14.0-18.0); Immature Granulocyte Absolute 0.03 K/mm3 (0.00-0.031); Immature Granulocyte Percent A 0.4 % (0-0.5); Lymphocytes Absolute Auto 0.68 K/mm3 (0.9-3.2); Lymphocytes Percent Auto 9.9 % (18.3-44.2); Mean Corpuscular Hemoglobin 27.2 pg (26-34); Mean Corpuscular Volume 85.1 fl (80-100); Mean Platelet Volume 10.8 fl (7.4-10.4); Monocytes Absolute Auto 0.5 K/mm3 (0.1-0.6); Monocytes Percent Auto 7.6 % (2.6-8.5); Neutrophils Absolute Auto 5.6 K/mm3 (1.3-6.7); Neutrophils Percent Auto 81.8 % (45.5-73.1); Platelet Count Result 200 k/mm3 (150-375); Red Blood Count 5.22 M/mm3 (4.6-6.20); Red Cell Distribution Width 14.8 % (11.5-14.5); White Blood Count 6.9 K/mm3 (4.5-10.0)
[2023-01-26 09:50] LABS: Alanine Aminotransferase 104 U/L (6-50); Alkaline Phosphatase 138 U/L (38-126); Anion Gap 19 mmol/L (8-16); Aspartate Amino Transferase 104 U/L (17-59); Bilirubin,Total 1.4 mg/dL (0.2-1.3); Blood Urea Nitrogen 13 mg/dL (9-20); Calcium 9.5 mg/dL (8.4-10.2); Carbon Dioxide 22 mmol/L (22-30); Chloride 98 mmol/L (98-107); Estimated CRCL calculation 132 ml/min; Estimated Glomerular Filt Rate > 60; Glucose 181 mg/dL (65-110); Lipase 106 U/L (23-300); Potassium 4.1 mmol/L (3.4-5.0); Sodium 139 mmol/L (137-145)
[2023-01-26 09:58] LABS: INR 1.1; Prothrombin Time 13.8 Seconds (11.1-14.7)
[2023-01-26 09:59] LABS: Partial Thromboplastin Time 28.6 SECONDS (22.3-36.8)
[2023-01-26 10:01] LABS: Troponin I < 0.012 ng/mL (0.000-0.034)
--- NOTE | 2023-01-26 12:31 | ED.GENADULT ---
HPI - General Adult General Chief complaint: Recheck/Abnormal Lab/Rx Stated complaint: high BP Time Seen by Provider: 01/26/23 11:55 History of Present Illness HPI narrative: 42-year-old male with history of hypertension presented to the emergency department for evaluation of hypertension, headache and diaphoresis. Patient states he was at a GI appointment this morning and he had onset of hypertension and felt very shaky. Patient was deferred to the emergency department for evaluation. Upon arrival to the ED patient does report he does have a headache. Patient states he has been taking his medication as directed. Patient denies any missing any doses. Patient's yesterday he had decreased p.o. intake and only had Gatorade this morning. Patient was not fasting for his appointment today. Patient denies any current chest pain or shortness of breath but patient does state he does feel lightheaded. Related Data Home Medications Medication Instructions Recorded Confirmed apixaban 2.5 mg tablet (Eliquis) 2.5 mg PO BID 11/11/22 01/26/23 paroxetine HCl 25 mg 25 mg PO DAILY 11/11/22 01/26/23 tablet,extended release 24 hr vitamin E 1 cap PO DAILY 12/30/22 01/26/23 Allergies Allergy/AdvReac Type Severity Reaction Status Date / Time Sulfa (Sulfonamide Allergy Intermediate Hives Verified 01/26/23 11:39 Antibiotics) sulfamethizole Allergy Unknown Hives Verified 01/26/23 11:39 Review of Systems Review of Systems: CONSTITUTIONAL: Denies fever, chills, or sweats. EYES: Denies visual changes, redness, or discharge. ENT: Denies rhinorrhea, congestion, sore throat, or otalgia. CARDIOVASCULAR: See HPI RESPIRATORY: Denies cough or dyspnea. GASTROINTESTINAL: Denies abdominal pain, nausea, vomiting, or diarrhea. GENITOURINARY: Denies dysuria or hematuria. SKIN: Denies rash or itching. MUSCULOSKELETAL: Denies back pain, joint pain, or myalgia. NEUROLOGIC: See HPI [facility] Past Medical History Medical History (Updated 01/26/23 @ 17:07 by Melvin Ireland MD) Alcohol use Colon cancer screening Elevated heart rate with elevated blood pressure and diagnosis of hypertension Elevated LFTs Elevated LFTs Epigastric pain Hx of adenomatous colonic polyps [place] (iron deficiency anemia) Low serum iron Palpitations Pulmonary embolism Pulmonary embolism Strain of lumbar region Unspecified internal derangement of knee Upper abdominal pain Venous embolism and thrombosis Vomiting Social History Social History Smoking status: Never smoker Second hand tobacco smoke exposure: No Alcohol intake: current Drinks per week: 4 Alcohol use details: DRINKS Substance use: never Substance use type: does not use Living arrangements: with family Occupation/Education: occupation Gender identity (if verbalized by the patient): Male Spiritual care concerns: No Agree to blood products: Yes Exam Narrative: APPEARANCE: Well appearing, no pain, no distress, well-nourished. HEAD: normocephalic, atraumatic. EYES: PERRLA/EOMI, conjunctivae clear. NOSE: Normal no drainage THROAT: Pharynx clear, no exudate. NECK: Supple. No adenopathy, no masses. RESPIRATORY: Airway patent, respirations nonlabored. Clear to auscultation bilaterally, no rales, rhonchi, wheezing. CARDIOVASCULAR: Regular rate and rhythm without murmurs rubs or gallops. ABDOMINAL: Soft, nontender, nondistended, normal bowel sounds MUSCULOSKELETAL: Moves all extremities. Strength/ROM intact, No edema, No calf tenderness. NEURO: Alert. Cranial nerves II through XII intact. Grossly intact SKIN: Warm, dry. Normal Color Course Course Emergency Course: Head CT will be ordered for the hypertension and headache in order to rule out intracranial abnormality due to no prior significant history of headaches. Chest pain protocol was started on arrival, patient's chest x-ray showed no acute cardiopulmonary disease. Patient wa
[2023-01-26] MEDS: SODIUM CHLORIDE 0.9% IV 1,000 ML 999 ML IV CONT ×2 (12:41→15:39)
[2023-01-26] MEDS: LORazepam INJ (*CRX) 2 MG/ML VIAL 0.5 MG IV PUSH (12:41)
[2023-01-26] MEDS: hydrALAZINE HCL 20 MG/ML VIAL 10 MG IV PUSH (12:42)
[2023-01-26 14:51] LABS: Troponin I < 0.012 ng/mL (0.000-0.034)
== END 2023-01-26 17:27 | disposition home or self-care (01) ==
PROVIDERS: Emergency Medicine; Emergency Provider Emergency Medicine; PCP Family Medicine
DX: R42 Dizziness and giddiness (principal); R00.0 Tachycardia, unspecified; I10 Essential (primary) hypertension; Z79.01 Long term (current) use of anticoagulants; Z86.718 Personal history of other venous thrombosis and embolism; Z86.711 Personal history of pulmonary embolism
CPT/HCPCS: 36415; 70450; 71046; 71275; 80053; 83690; 84484; 85025; 85610; 85730; 93005; 96361; 96374; 96375; 99284; J0360; J2060; J7030; Q9967

== ENCOUNTER 2023-07-05 18:46 | Emergency (ER) | payer OTHER, SELFPAY ==
--- NOTE | ~2023-07-05 | XR_ITS ---
Portable chest x-ray Comparison: 01/26/2023 Clinical History: Hypertension Findings: Lungs are clear, without focal consolidation or pleural effusion. Cardiomediastinal silho uette is stable. Bones and soft tissues are unremarkable. Impression: Clear lungs. Reviewed, dictated and finalized at location . Impression: Clear lungs.
[2023-07-05 18:54] VITALS: BP 186/124; PULSE 109; RESP 20; TEMP 36.6; O2SAT 97
--- NOTE | 2023-07-05 19:01 | ECG_ITS ---
Measurements Intervals [place] Rate: 109 P: 29 RI: 217 QRS: 36 QRSD: 91 T: 34 QT: 328 QTc: 442 Interpretive Statements SINUS TACHYCARDIA WITH FIRST DEGREE AV BLOCK POSSIBLE LEFT ATRIAL ENLARGEMENT BASELINE WANDER- V3-V6 BORDERLINE ECG COMPARED TO ECG 01/26/2023 09:06:27 HEART RATE HAS DECREASED FIRST DEGREE AV BLOCK NOW PRESENT Electronically Signed On 07-06-2023 7:02:21 CDT by Giovany Rock D.O.
--- NOTE | 2023-07-05 19:07 | ED.GENADULT ---
HPI - General Adult General Chief complaint: Unspecified Stated complaint: htn, shaky Time Seen by Provider: 07/05/23 18:56 History of Present Illness HPI narrative: 42-year-old male presented the emergency department for evaluation of hypertension and diaphoresis. Patient denied any associated chest pain with this. Patient reports he had been taking extra Eliquis and not taking his lisinopril as directed. Patient is unsure for how long he had been doing this. Patient noticed that he was having some elevated blood pressure today and first noticed that he had 2 bottles of Eliquis and no lisinopril. Related Data Home Medications Medication Instructions Recorded Confirmed apixaban 2.5 mg tablet (Eliquis) 2.5 mg PO BID 11/11/22 03/16/23 vitamin E 1 cap PO DAILY 12/30/22 03/16/23 Allergies Allergy/AdvReac Type Severity Reaction Status Date / Time Sulfa (Sulfonamide Allergy Intermediate Hives Verified 07/05/23 18:59 Antibiotics) sulfamethizole Allergy Unknown Hives Verified 07/05/23 18:59 Review of Systems Review of Systems: All systems reviewed & are unremarkable except as noted in HPI and below PMFSH Past Medical History Medical History Alcohol use Colon cancer screening Elevated heart rate with elevated blood pressure and diagnosis of hypertension Elevated LFTs Elevated LFTs Epigastric pain Hx of adenomatous colonic polyps [place] (iron deficiency anemia) Low serum iron Palpitations Pulmonary embolism Pulmonary embolism Strain of lumbar region Unspecified internal derangement of knee Upper abdominal pain Venous embolism and thrombosis Vomiting Social History Social History Smoking status: Never smoker Second hand tobacco smoke exposure: No Alcohol intake: current Drinks per week: 4 Alcohol use details: DRINKS Substance use: never Substance use type: does not use Lack of Transportation: No Lack of Food: Never True Current Housing: I Have Housing Concerned About Future Housing: No Difficulty Paying Gas/Electric Bills: No Difficulty Paying for Meds: No Currently Unemployed: No Education: Bachelor's Degree Difficulty w/ Childcare or Family Care: No Living arrangements: with family Occupation/Education: occupation Gender identity (if verbalized by the patient): Male Spiritual care concerns: No Agree to blood products: Yes Exam Narrative: APPEARANCE: Well appearing, no pain, no distress, well-nourished. HEAD: normocephalic, atraumatic. EYES: PERRLA/EOMI, conjunctivae clear. NOSE: Normal no drainage EARS:TMS clear with good light reflex. THROAT: Pharynx clear, no exudate. NECK: Supple. No adenopathy, no masses. RESPIRATORY: Airway patent, respirations nonlabored. Clear to auscultation bilaterally, no rales, rhonchi, wheezing. CARDIOVASCULAR: Regular rate and rhythm without murmurs rubs or gallops. ABDOMINAL: Soft, nontender, nondistended, normal bowel sounds MUSCULOSKELETAL: Moves all extremities. Strength/ROM intact, No edema, No calf tenderness. NEURO: Alert. Cranial nerves II through XII intact. Gross intact SKIN: Warm, dry. Normal Color Course Course Emergency Course: 42-year-old male presented ED for evaluation of hypertension and diaphoresis. Patient states he did feel improved with treatment of his blood pressure. Patient was treated with his home lisinopril along with hydralazine and follow-up. Patient had a negative cardiac work-up and states he felt improved. Patient was advised to continue to take his lisinopril was also encouraged of close follow-up with his primary care physician to see if he needs to have his medications to achieve better control over his blood pressure once he has been taking the lisinopril for a few days. All questions concerns were addressed and patient was well-appearing and improved at time of discharge from
[2023-07-05 19:16] LABS: Basophils Percent Auto 0.4 % (0.2-1.2); Hematocrit 41.8 % (42.0-52.0); Hemoglobin 13.3 g/dL (14.0-18.0); Immature Granulocyte Absolute 0.01 K/mm3 (0.00-0.031); Immature Granulocyte Percent A 0.2 % (0-0.5); Lymphocytes Absolute Auto 1.19 K/mm3 (0.9-3.2); Lymphocytes Percent Auto 23.1 % (18.3-44.2); Mean Corpuscular HGB Conc 31.8 g/dl (32-36); Mean Corpuscular Hemoglobin 25.7 pg (26-34); Mean Corpuscular Volume 80.9 fl (80-100); Mean Platelet Volume 10.4 fl (7.4-10.4); Monocytes Absolute Auto 0.6 K/mm3 (0.1-0.6); Monocytes Percent Auto 11.8 % (2.6-8.5); Neutrophils Absolute Auto 3.3 K/mm3 (1.3-6.7); Neutrophils Percent Auto 64.5 % (45.5-73.1); Platelet Count Result 138 k/mm3 (150-375); Red Blood Count 5.17 M/mm3 (4.6-6.20); Red Cell Distribution Width 17.5 % (11.5-14.5); White Blood Count 5.2 K/mm3 (4.5-10.0)
[2023-07-05 19:23] LABS: Glucose Point of Care 154 mg/dl (65-105)
[2023-07-05 19:27] LABS: Alanine Aminotransferase 120 U/L (6-50); Albumin Level 4.6 g/dL (3.5-5.1); Alkaline Phosphatase 104 U/L (38-126); Anion Gap 11 mmol/L (8-16); Aspartate Amino Transferase 115 U/L (17-59); Bilirubin,Total 1.5 mg/dL (0.2-1.3); Blood Urea Nitrogen 13 mg/dL (9-20); Calcium 10.1 mg/dL (8.4-10.2); Carbon Dioxide 27 mmol/L (22-30); Chloride 101 mmol/L (98-107); Estimated CRCL calculation 117 ml/min; Estimated Glomerular Filt Rate > 60; Glucose 129 mg/dL (65-110); Lipase 83 U/L (23-300); Potassium 3.3 mmol/L (3.4-5.0); Sodium 139 mmol/L (137-145)
[2023-07-05 19:28] LABS: Partial Thromboplastin Time 26.5 SECONDS (22.3-36.8); Prothrombin Time 13.3 Seconds (11.1-14.7)
[2023-07-05 19:38] LABS: Troponin I < 0.012 ng/mL (0.000-0.034)
[2023-07-05] MEDS: lisinopriL 10 MG TABLET PO (19:41)
[2023-07-05 19:42] VITALS: PULSE 105
[2023-07-05] MEDS: METOPROLOL TARTRATE INJ 5 MG/5 ML VIAL IV PUSH (19:42)
[2023-07-05 20:18] VITALS: BP 163/122; PULSE 90; RESP 16; O2SAT 99
[2023-07-05] MEDS: hydrALAZINE HCL 20 MG/ML VIAL 10 MG IV PUSH (20:37)
[2023-07-05 22:00] VITALS: PULSE 96
[2023-07-05 22:25] VITALS: BP 158/115; PULSE 96; RESP 15; O2SAT 98
[2023-07-05 23:25] LABS: Troponin I < 0.012 ng/mL (0.000-0.034)
== END 2023-07-05 22:26 | disposition home or self-care (01) ==
PROVIDERS: Emergency Provider Emergency Medicine; PCP Family Medicine
DX: I10 Essential (primary) hypertension (principal); Z86.711 Personal history of pulmonary embolism; Z79.01 Long term (current) use of anticoagulants
CPT/HCPCS: 36415; 71045; 80053; 82948; 83690; 84484; 85025; 85610; 85730; 93005; 96374; 96375; 99284; A9270; J0360

== ENCOUNTER 2023-07-30 15:43 | Emergency (ER) | payer OTHER, SELFPAY ==
[2023-07-30 16:04] VITALS: BP 171/119; PULSE 107; RESP 19; TEMP 36.4; O2SAT 99
--- NOTE | 2023-07-30 16:07 | ECG_ITS ---
Measurements Intervals [place] Rate: 109 P: 43 NV: 222 QRS: 46 QRSD: 94 T: 31 QT: 327 QTc: 441 Interpretive Statements SINUS TACHYCARDIA WITH FIRST DEGREE AV BLOCK ABNORMAL ECG COMPARED TO ECG 07/05/2023 18:56:07 NO SIGNIFICANT CHANGES Electronically Signed On 07-30-2023 16:11:43 CDT by Giovany Rock D.O.
[2023-07-30 16:27] LABS: Basophils Percent Auto 0.2 % (0.2-1.2); Hematocrit 40.6 % (42.0-52.0); Immature Granulocyte Absolute 0.02 K/mm3 (0.00-0.031); Immature Granulocyte Percent A 0.3 % (0-0.5); Lymphocytes Absolute Auto 0.54 K/mm3 (0.9-3.2); Lymphocytes Percent Auto 9.1 % (18.3-44.2); Mean Corpuscular Hemoglobin 26.5 pg (26-34); Mean Corpuscular Volume 82.7 fl (80-100); Mean Platelet Volume 10.7 fl (7.4-10.4); Monocytes Absolute Auto 0.4 K/mm3 (0.1-0.6); Monocytes Percent Auto 7.4 % (2.6-8.5); Platelet Count Result 146 k/mm3 (150-375); Red Blood Count 4.91 M/mm3 (4.6-6.20); Red Cell Distribution Width 17.6 % (11.5-14.5)
[2023-07-30 16:39] LABS: Alanine Aminotransferase 167 U/L (6-50); Albumin Level 4.8 g/dL (3.5-5.1); Alkaline Phosphatase 106 U/L (38-126); Anion Gap 8 mmol/L (8-16); Aspartate Amino Transferase 171 U/L (17-59); Bilirubin,Total 1.5 mg/dL (0.2-1.3); Blood Urea Nitrogen 11 mg/dL (9-20); Calcium 9.8 mg/dL (8.4-10.2); Carbon Dioxide 32 mmol/L (22-30); Chloride 98 mmol/L (98-107); Estimated CRCL calculation 107 ml/min; Estimated Glomerular Filt Rate > 60; Glucose 114 mg/dL (65-110); Potassium 3.8 mmol/L (3.4-5.0); Sodium 138 mmol/L (137-145)
[2023-07-30 19:09] VITALS: BP 159/114; PULSE 101; RESP 16; O2SAT 97
[2023-07-30] MEDS: PROCHLORPERAZINE MALEATE 5 MG TABLET 10 MG PO (20:16)
[2023-07-30] MEDS: LORazepam (*CRX) 0.5 MG TABLET PO (20:16)
[2023-07-30 20:26] VITALS: BP 148/111; PULSE 103; RESP 16; O2SAT 97
--- NOTE | 2023-07-30 20:56 | ED.RECABL ---
HPI - Recheck/Abnormal Lab/Rx General Chief Complaint: Recheck/Abnormal Lab/Rx Stated Complaint: high blood pressure Time Seen by Provider: 07/30/23 19:04 History of Present Illness HPI narrative: This is a 42-year-old male, with past history of hypertension, who presents to the emergency department complaining of anxiety, dizziness and sweats. Related Data Home Medications Medication Instructions Recorded Confirmed apixaban 2.5 mg tablet (Eliquis) 2.5 mg PO BID 11/11/22 03/16/23 vitamin E 1 cap PO DAILY 12/30/22 03/16/23 Allergies Allergy/AdvReac Type Severity Reaction Status Date / Time Sulfa (Sulfonamide Allergy Intermediate Hives Verified 07/05/23 18:59 Antibiotics) sulfamethizole Allergy Unknown Hives Verified 07/05/23 18:59 PMFSH Past Medical History Medical History Alcohol use Colon cancer screening Elevated heart rate with elevated blood pressure and diagnosis of hypertension Elevated LFTs Elevated LFTs Epigastric pain Hx of adenomatous colonic polyps [place] (iron deficiency anemia) Low serum iron Palpitations Pulmonary embolism Pulmonary embolism Strain of lumbar region Unspecified internal derangement of knee Upper abdominal pain Venous embolism and thrombosis Vomiting Social History Social History Smoking status: Never smoker Second hand tobacco smoke exposure: No Alcohol intake: current Drinks per week: 4 Alcohol use details: DRINKS Substance use: never Substance use type: does not use Lack of Transportation: No Lack of Food: Never True Current Housing: I Have Housing Concerned About Future Housing: No Difficulty Paying Gas/Electric Bills: No Difficulty Paying for Meds: No Currently Unemployed: No Education: Bachelor's Degree Difficulty w/ Childcare or Family Care: No Living arrangements: with family Occupation/Education: occupation Gender identity (if verbalized by the patient): Male Spiritual care concerns: No Agree to blood products: Yes Course Course Emergency Course: 19:30 - CIWA score 7. Will give Ativan and reassess. 20:50 - On reevaluation, the patient states his nausea and anxiety have improved. His blood pressure is gradually improving. I suspect alcohol withdrawal as the cause of his symptoms. Will discharge with a Librium taper. The patient has a follow-up appointment with his primary care doctor in 4 days. Vital Signs Vital signs: Vital Signs Temperature 97.5 F L 07/30/23 16:04 Pulse Rate 107 H 07/30/23 16:04 Respiratory Rate 19 07/30/23 16:04 Blood Pressure 171/119 H 07/30/23 16:04 Pulse Oximetry 99 07/30/23 16:04 Oxygen Delivery Room Air 07/30/23 16:04 Temperature 97.5 F L 07/30/23 16:04 Pulse Rate 101 H 07/30/23 21:56 Respiratory Rate 18 07/30/23 21:56 Blood Pressure 150/105 H 07/30/23 21:56 Pulse Oximetry 97 07/30/23 21:56 Oxygen Delivery Room Air 07/30/23 16:04 MDM - Recheck/Abnormal Lab/Rx Lab Data 07/30/23 16:13 07/30/23 16:13 Labs: Lab Results 07/30/23 Range/Units 16:13 WBC 6.0 (4.5-10.0) K/mm3 RBC 4.91 (4.6-6.20) M/mm3 Hgb 13.0 L (14.0-18.0) g/dL Hct 40.6 L (42.0-52.0) % MCV 82.7 (80-100) fl MCH 26.5 (26-34) pg MCHC 32.0 (32-36) g/dl RDW 17.6 H (11.5-14.5) % Plt Count 146 L (150-375) k/mm3 MPV 10.7 H (7.4-10.4) fl Immature Gran % (Auto) 0.3 (0-0.5) % Neut % (Auto) 83.0 H (45.5-73.1) % Lymph % (Auto) 9.1 L (18.3-44.2) % [place] % (Auto) 7.4 (2.6-8.5) % Eos % (Auto) 0.0 (0-4.4) % Baso % (Auto) 0.2 (0.2-1.2) % Lymph # (Auto) 0.54 L (0.9-3.2) K/mm3 [place] # (Auto) 0.4 (0.1-0.6) K/mm3 Eos # (Auto) 0.0 (0-0.3) K/mm3 Baso # (Auto) 0.0 (0.0-0.1) K/mm3 Abs Immat Gran (auto) 0.02 (0.00-0.031) K/mm3 Absolute Neuts (auto) 5.0 (1.3-6.7) K/mm3 Absolute Nucleated RBC
[2023-07-30 21:56] VITALS: BP 150/105; PULSE 101; RESP 18; O2SAT 97
== END 2023-07-30 21:58 | disposition home or self-care (01) ==
PROVIDERS: Emergency Medicine; Emergency Provider Preventive Medicine Aerospace Medicine; PCP Family Medicine
DX: F10.939 Alcohol use, unspecified with withdrawal, unspecified (principal); I10 Essential (primary) hypertension; D50.9 Iron deficiency anemia, unspecified; Z86.711 Personal history of pulmonary embolism; Z86.718 Personal history of other venous thrombosis and embolism; Z86.010 Personal history of colon polyps; Y90.9 Presence of alcohol in blood, level not specified; R00.0 Tachycardia, unspecified; I44.0 Atrioventricular block, first degree
CPT/HCPCS: 36415; 80053; 84443; 85025; 93005; 99283; A9270

== ENCOUNTER 2024-03-31 15:21 | Outpatient (CLI) | payer OTHER, SELFPAY ==
--- NOTE | 2024-03-31 15:27 | ECHO_ITS ---
Patient Info Name: Zion León Age: 43 years : 1980 Gender: Male Ht: 75 in Wt: 270 lbs BSA: 2.58 m2 HR: 73 bpm BP: 120 / 72 mmHg Technical Quality: Good Exam Date: 03/31/2024 3:44 PM Exam Location: Echo Lab Patient Status: Outpatient Admit Date: 03/31/2024 Staff Ordering Physician: Carito Romeo MD Aviation Tactical Readiness Officer: Robert Denis RDCS Attending Provider: Carito Romeo MD Referring Physician: Agueda KAT; Exam Type: CA echo doppler color flow Study Info Indications - aortic ectasia Complete two-dimensional, color flow and Doppler transthoracic echocardiogram is performed. Summary 1. Complete two-dimensional, color flow and Doppler transthoracic echocardiogram is performed. 2. Left ventricular chamber dimension is normal. 3. Left ventricular systolic function is normal, estimated at 60-65%. 4. There is mild concentric increased left ventricular wall thickness. 5. The left ventricular diastolic function is normal. 6. E/e' 5 is not elevated. 7. No pulmonary hypertension, estimated pulmonary arterial systolic pressure is 21 mmHg. 8. The aortic root size at the sinus of Valsalva is moderately dilated at 4.5 cm. Left Ventricle E/e' 5 is not elevated. Left ventricular chamber dimension is normal. Left ventricular systolic function is normal, estimated at 60-65%. There is mild concentric increased left ventricular wall thickness. The left ventricular diastolic function is normal. Right Ventricle Right ventricular systolic function is normal and with normal TAPSE 2.2 cm. Right ventricular chamber dimension is normal. Left Atria Left atrial chamber dimension is normal. Right Atria Right atrial chamber dimension is normal. Aortic Valve The aortic valve is trileaflet. There is no aortic valve stenosis. There is no aortic valve regurgitation. Pulmonic Valve There is no pulmonic regurgitation. Mitral Valve There is no mitral valve stenosis. There is no mitral valve regurgitation. Tricuspid Valve There is no tricuspid valve regurgitation. No pulmonary hypertension, estimated pulmonary arterial systolic pressure is 21 mmHg. Pericardium/Pleural There is no pericardial effusion. Inferior Vena Cava Normal inferior vena cava with >50% collapse upon inspiration consistent with normal right atrial pressure, 5 mmHg. Aorta The aortic root size at the sinus of Valsalva is moderately dilated at 4.5 cm. The prox ascending aorta size is normal. Left Ventricular Outflow Tract Name Value Normal LVOT 2D LVOT Diameter 2.8 cm LVOT Doppler LVOT Peak Gradient 3 mmHg LVOT Mean Gradient 2 mmHg LVOT VTI 19 cm LVOT VTI/AV VTI Ratio 1.0 LVOT Stroke Volume 119 ml LVOT CO 8.1 l/min LVOT CI 3.2 l/min/m2 Pulmonic Valve Name Value Normal PV Doppler
== END 2024-03-31 15:22 | disposition home or self-care (01) ==
LOC: ANHCARD 15:22
PROVIDERS: PCP Family Medicine; Visit Provider Family Medicine
DX: I77.819 Aortic ectasia, unspecified site (principal)
CPT/HCPCS: 93306

== ENCOUNTER 2024-09-06 08:14 | Outpatient (CLI) | payer OTHER, SELFPAY ==
[2024-09-06 20:49] LABS: Alanine Aminotransferase 24 U/L (6-50); Albumin Level 4.4 g/dL (3.5-5.1); Alkaline Phosphatase 80 U/L (38-126); Anion Gap 7 mmol/L (4-12); Aspartate Amino Transferase 32 U/L (17-59); Bilirubin,Total 1.1 mg/dL (0.2-1.3); Blood Urea Nitrogen 19 mg/dL (9-20); Calcium 9.4 mg/dL (8.4-10.2); Carbon Dioxide 30 mmol/L (22-30); Chloride 105 mmol/L (98-107); Cholesterol 171 mg/dL (0-200); Estimated Glomerular Filt Rate > 60; Glucose 106 mg/dL (65-110); HDL Direct 32 mg/dL; Potassium 4.3 mmol/L (3.4-5.0); Sodium 142 mmol/L (137-145); Triglycerides 104 mg/dL (<150)
[2024-09-06 20:52] LABS: Basophils Percent Auto 0.5 % (0.2-1.2); Eosinophils Absolute Auto 0.1 K/mm3 (0-0.3); Eosinophils Percent Auto 1.4 % (0-4.4); Hematocrit 46.7 % (42.0-52.0); Immature Granulocyte Absolute 0.01 K/mm3 (0.00-0.031); Immature Granulocyte Percent A 0.2 % (0-0.5); Lymphocytes Absolute Auto 1.71 K/mm3 (0.9-3.2); Mean Corpuscular HGB Conc 32.1 g/dl (32-36); Mean Corpuscular Hemoglobin 27.1 pg (26-34); Mean Corpuscular Volume 84.3 fl (80-100); Mean Platelet Volume 12.7 fl (7.4-10.4); Monocytes Absolute Auto 0.6 K/mm3 (0.1-0.6); Monocytes Percent Auto 9.6 % (2.6-8.5); Neutrophils Absolute Auto 3.3 K/mm3 (1.3-6.7); Neutrophils Percent Auto 58.3 % (45.5-73.1); Platelet Count Result 178 k/mm3 (150-375); Red Blood Count 5.54 M/mm3 (4.6-6.20); Red Cell Distribution Width 14.2 % (11.5-14.5); White Blood Count 5.7 K/mm3 (4.5-10.0)
[2024-09-06 21:00] LABS: LDL Cholesterol Direct 106 mg/dL
== END 2024-09-06 08:15 | disposition home or self-care (01) ==
LOC: ANHGOSHLAB 08:15
PROVIDERS: PCP Family Medicine; Visit Provider Family Medicine
DX: K59.00 Constipation, unspecified (principal); I10 Essential (primary) hypertension
CPT/HCPCS: 36415; 80053; 80061; 84443; 85025

== ENCOUNTER 2024-10-12 08:55 | Outpatient (CLI) | payer OTHER, SELFPAY | END 2024-10-12 08:56 | disposition home or self-care (01) | LOC: ANHLAB 08:57 | PROVIDERS: PCP Family Medicine; Visit Provider Anesthesiology | DX: K42.9 Umbilical hernia without obstruction or gangrene (principal); Z01.818 Encounter for other preprocedural examination | CPT/HCPCS: 36415; 86850; 86900; 86901 ==

== ENCOUNTER 2024-10-17 02:49 | Day surgery (SDC) | payer OTHER, SELFPAY ==
[2024-10-10 11:27] VITALS: BMI 34.4
--- NOTE | 2024-10-10 11:32 | PC.NURSE ---
Report to the Outpatient Waiting Room, entrance under the green pavilion located off [facility], at time _0730_ on date _[id number]_. Planned Procedure Time: _0930_.? Time changes happen often and if your time is changed the preop area will call you the afternoon before. - You and your visitor will be asked to self-screen and do not enter if you have any COVID symptoms. Please call surgeon if you need to reschedule. - A mask is optional within the hospital at this time. Patients may have clear liquids (water, carbonated beverages, clear teas, apple juice) until 3 hours prior to surgery with a maximum of 20 ounces. - No food from midnight until time of surgery and no smoking. This includes no chewing gum, candy or mints. Take only the following medications with a SIP of water on the morning of surgery: ___Metoprolol and Paroxetine DO NOT STOP ANY OF YOUR OTHER PRESCRIPTION MEDICATIONS PRIOR TO SURGERY EXCEPT THE FOLLOWING Medications to discontinue per physician ____Eliquis Date to take last jzuc___[id number]___Gkz Dr Garcia's note. Please no make-up, nail setswana, hairspray, perfume, deodorant, or body powder the day of surgery.? No jewelry (including any body piercings) or valuables the day of surgery, leave them at home.? Please take a shower or bath the night before, or the morning of, surgery with an antibacterial soap.? Wear comfortable, loose fitting clothing.? - Jewelry must be removed prior to entering the operating room.? Rings and piercings that are not removed may be cut off. - The hospital will not accept responsibility for valuables.? - Please leave all valuables, including medications, at home the day of surgery. If you are going home after surgery, a licensed road driver must drive you home.? - NO public transportation without another adult if you receive anesthesia. - We recommend that an adult stay with you for 24 hours following discharge. - We also recommend that you do not drive, make important decision, drink alcoholic beverages, or take any drugs that were not prescribed by your health care provider for at least 24 hours after your discharge time. Follow any additional instructions given to you from your surgeon. Telephone instructions given to __Scott__and asked if any additional questions and then verbalized understanding. Patient advised to call surgeon office or pre surgery nurse liaison [phone] if any additional questions.
[2024-10-17] VITALS (9 sets, daily range): BP systolic 121–133; BP diastolic 76–88; PULSE 74–91; RESP 12–15; TEMP 36.1–36.5; O2SAT 92–97
[2024-10-17] MEDS: ENOXAPARIN 40 MG/0.4 ML SYRINGE SUB-Q (08:15)
[2024-10-17] MEDS: KETOROLAC 15 MG/ML VIAL (*BKC) IV PUSH (08:30)
[2024-10-17] MEDS: ACETAMINOPHEN 500 MG TABLET 1000 MG PO (08:30)
--- NOTE | 2024-10-17 08:49 | WPDHPUPDATE1 ---
History and Physical Update Update Date/Time: 10/17/24 08:49 History and Physical has been reviewed, including an updated exam of the patient. There are NO changes in the patient's condition. Risks, benefits, and alternatives have been discussed and questions answered. Patient agrees to proceed with procedure.
--- NOTE | 2024-10-17 08:49 | PM.IMHP ---
H&P: HPI History of Present Illness Date/Time: 10/17/24 08:49 Chief Complaint: Umbilical hernia Narrative: This is a 43-year-old man who presents for umbilical hernia repair. He reports no significant changes since last seen in the office. Review of Systems Review of Systems: All systems reviewed & are unremarkable except as noted in HPI and below Constitutional: Constitutional: Denies chills, Denies fever(s), Denies headache(s) and Denies weight loss Eyes: Eyes: Denies change in vision ENT: Denies dizziness, Denies headache(s), Denies neck mass and Denies throat swelling Cardiovascular: Cardiovascular: Denies chest pain, Denies lightheadedness and Denies dyspnea Respiratory: Respiratory: Denies cough, Denies dyspnea and Denies wheezing Gastrointestinal: Gastrointestinal: Denies abdominal pain, Denies change in bowel habits, Denies nausea and Denies vomiting Genitourinary: Genitourinary: Denies hematuria and Denies dysuria Musculoskeletal: Musculoskeletal: Reports as per HPI Integumentary/Breasts: Skin/Breast: Reports as per HPI Neurologic: Denies dizziness and Denies headache(s) Allergic/Immunologic: Allergic/Immunologic: Denies throat swelling and Denies wheezing PMF Past Medical History Medical History Alcohol use Anxiety Colon cancer screening Elevated heart rate with elevated blood pressure and diagnosis of hypertension Epigastric pain Hx of adenomatous colonic polyps [place] (iron deficiency anemia) Low serum iron Palpitations Pulmonary embolism Pulmonary embolism Strabismus Strain of lumbar region Unspecified internal derangement of knee Upper abdominal pain Venous embolism and thrombosis Vomiting Surgical History Surgical History Status post medial meniscus repair Family History Family History Mother Alcoholism Depression Father Alcoholism Depression Social History Social History Smoking status: Never smoker Second hand tobacco smoke exposure: No Alcohol intake: former Substance use: never Substance use type: marijuana Last use: week ago Do You Feel Safe in your Home?: Yes Lack of Transportation: No Lack of Food: Never True Current Housing: I Have Housing Concerned About Future Housing: No Difficulty Paying Gas/Electric Bills: No Difficulty Paying for Meds: No Currently Unemployed: No Education: Bachelor's Degree Difficulty w/ Childcare or Family Care: No Living arrangements: with family Occupation/Education: occupation Gender identity (if verbalized by the patient): Male Spiritual care concerns: No Agree to blood products: Yes Meds Home Medications and Allergies Home Medications ?Medication ?Instructions ?Recorded ?Confirmed ?Type apixaban 2.5 mg tablet (Eliquis) 2.5 mg PO BID 11/11/22 10/10/24 History omeprazole 40 mg capsule,delayed 40 mg PO BID #180 caps 11/03/23 10/10/24 Rx release paroxetine HCl 37.5 mg 37.5 mg PO QAM #90 tabs 01/27/24 10/10/24 Rx tablet,extended release 24 hr metoprolol succinate 25 mg 25 mg PO DAILY #90 tabs 08/08/24 10/10/24 Rx tablet,extended release 24 hr Allergies Allergy/AdvReac Type Severity Reaction Status Date / Time Sulfa (Sulfonamide Allergy Intermediate Hives Verified 10/10/24 11:25 Antibiotics) sulfamethizole Allergy Unknown Hives Verified 10/10/24 11:25 Exam Const: General: no acute distress and alert Orientation/consciousness: patient oriented x3 HENMT: Head: normocephalic and atraumatic Ears: hearing grossly normal bilaterally Face/Nose/Sinus: Normal nares present Mouth: Yes Normal oral and palatal mucosa present Eyes: Periorbital: periorbital findings normal Sclera: sclerae normal EOM: EOMs intact bilaterally Neck: Neck: normal visual inspection, no lymphadenopathy and trachea midline Chest: Chest palpation & inspection: normal inspection of the chest Resp: Effort & Inspection: normal respiratory effort Auscultation: clear to auscultation bilaterally Cardio: Jugular venous distension: no JVD Rate: regular rate Rhythm: regular rhythm Heart sounds: S1 normal heart sound present and S2 normal heart sound present Peripheral pulses: Peripheral pulses 2+ throughout GI: Inspection: normal to inspection GI Palp: Yes Soft to palpation, No Tenderness to palpation present (GI), No Guarding due to palpation present (GI), Yes Hernia present umbilical 3-10 cm and No Rebound tenderness present Percussion: Yes normal to percussion Auscultation: normal bowel sounds : General: Yes no CVA tenderness Back/Spine/Pelvis: Back: no CVA tenderness Neuro: General: patient oriented x3, no focal motor deficits and CN's II-XI intact bilaterally Cognition (Neuro): normal cognition Speech: normal speech Motor exam (neuro): 5/5 motor strength present throughout Extrem: General: capillary refill normal and no clubbing, cyanosis or edema Assessment and Plan Assessment and plan (1) Umbilical hernia: Qualifiers: Obstruction and gangrene presence: without obstruction or gangrene Qualified Code(s): K42.9 - Umbilical hernia without obstruction or gangrene Code(s): K42.9 - Umbilical hernia without obstruction or gangrene Status: Acute Assessment and Plan: I have recommended laparoscopic umbilical hernia repair with mesh, da Marbin assisted. I have discussed the procedure, risks, benefits, and alternatives with the patient. All questions answered. No changes since last seen in office.
--- NOTE | 2024-10-17 09:14 | WPDANESEPPF ---
Anes - Initial Pre Proc Eval Procedure: Operation Date: 10/17/24 09:30 Proposed Procedures p Laparoscopic Umbilical Hernia Repair with Mesh, Davinci Assisted - Barrington Garcia DO Date/Time: 10/17/24 09:14 Surgeon: Barrington Garcia DO Pre Op Diagnosis: umbilical hernia Patient Data Age: 43 Gender: M Height: 1.91 m Weight: 125 kg Allergies Allergy/AdvReac Type Severity Reaction Status Date / Time Sulfa (Sulfonamide Allergy Intermediate Hives Verified 10/10/24 11:25 Antibiotics) sulfamethizole Allergy Unknown Hives Verified 10/10/24 11:25 Home Medications ?Medication ?Instructions ?Recorded ?Confirmed ?Type apixaban 2.5 mg tablet (Eliquis) 2.5 mg PO BID 11/11/22 10/10/24 History omeprazole 40 mg capsule,delayed 40 mg PO BID #180 caps 11/03/23 10/10/24 Rx release paroxetine HCl 37.5 mg 37.5 mg PO QAM #90 tabs 01/27/24 10/10/24 Rx tablet,extended release 24 hr metoprolol succinate 25 mg 25 mg PO DAILY #90 tabs 08/08/24 10/10/24 Rx tablet,extended release 24 hr Patient hx anesthesia problems: none Family hx anesthesia problems: none Results Review: All pre-operative results and documents have been reviewed as part of the pre-operative evaluation. [facility] Past Medical History Medical History Alcohol use Anxiety Colon cancer screening Elevated heart rate with elevated blood pressure and diagnosis of hypertension Epigastric pain Hx of adenomatous colonic polyps [place] (iron deficiency anemia) Low serum iron Palpitations Pulmonary embolism Pulmonary embolism Strabismus Strain of lumbar region Unspecified internal derangement of knee Upper abdominal pain Venous embolism and thrombosis Vomiting Surgical History Surgical History Status post medial meniscus repair Family History Family History Mother Alcoholism Depression Father Alcoholism Depression Social History Social History Smoking status: Never smoker Second hand tobacco smoke exposure: No Alcohol intake: former Substance use: never Substance use type: marijuana Last use: week ago Do You Feel Safe in your Home?: Yes Lack of Transportation: No Lack of Food: Never True Current Housing: I Have Housing Concerned About Future Housing: No Difficulty Paying Gas/Electric Bills: No Difficulty Paying for Meds: No Currently Unemployed: No Education: Bachelor's Degree Difficulty w/ Childcare or Family Care: No Living arrangements: with family Occupation/Education: occupation Gender identity (if verbalized by the patient): Male Spiritual care concerns: No Agree to blood products: Yes Anes - Eval Final PreProcedure Day of Procedure 10/17/24 09:14 Patient weight: obese Heart: regular rate and rhythm Lungs: clear to auscultation Airway: Mallampati scale class II Neurological: alert and oriented Last oral intake: >/= 8 hours ASA classification: III Emergent: no Anesthetic plan: proceed Anesthesia type and monitoring: general ETT and standard monitoring Results Review: All pre-operative results and documents have been reviewed as part of the pre-operative evaluation. Informed Consent: The patient's anesthetic plan and its attendant risks and benefits were discussed with the patient/family/POA. Questions were solicited and answers provided to the satisfaction of the patient/family/POA.
[2024-10-17] MEDS: ceFAZolin 3 GM/D5W 100 ML 100 ML IVPB (09:21)
[2024-10-17] MEDS: BUPIVACAINE/EPINEPHRINE 0.5% 50 ML VIAL 30 ML INFILTRATE (09:59)
--- NOTE | 2024-10-17 11:04 | W.PM.PROC2 ---
Procedure Note - Detailed Date of Procedure 10/17/24 Pre-op Diagnosis umbilical hernia Post-op Diagnosis Same (3 cm umbilical hernia) Procedure Performed Laparoscopic 3 cm umbilical hernia repair with mesh, da Marbin assisted Surgeon Barrington Garcia, Anesthesia General and Local (0.5% bupivacaine with epinephrine) Indications This is a 43-year-old man who presented with an umbilical hernia that he 1st noticed about 5 years ago. He initially noticed a small bulge with some occasional discomfort. It has become slightly larger over time and is causing some more symptoms. He was found to have an umbilical hernia on exam that was measuring about 3 cm. Discussions were made with the patient about treatment options and decision was made to proceed with robotic assisted laparoscopic umbilical hernia repair with mesh. Findings Robotic assisted laparoscopic 3 cm umbilical hernia repair with mesh was performed. The patient was found to have a 3 cm umbilical hernia containing preperitoneal fat. A robotic transabdominal preperitoneal approach was utilized for repair. Once a wide enough preperitoneal pocket was created, I then repaired the hernia using 0 Stratafix running absorbable suture and Bard soft mesh 15 cm x 10 cm. No specimens were obtained for pathology. Description of Procedure Procedure as well as risks, benefits, and alternatives were discussed with the patient. Written consent was obtained and placed in chart prior to procedure. Patient was brought back to surgical suite. He was placed supine on operating table. Time-out was done to confirm patient and procedure. He was then intubated by the anesthesia department. A bump was placed under his left hip, and the bed was flexed slightly to extend the space between his costal margin and iliac crest. His abdomen was prepped and draped in sterile fashion using chlorhexidine prep. A 5 millimeter incision was made in the left upper quadrant, and a 5 millimeter Optiview trocar was advanced through the abdominal layers under direct visualization. Once inside the abdominal cavity, carbon dioxide insufflation was used to create a pneumoperitoneum. His abdomen was inspected. An 8 millimeter incision was made in the left lower quadrant, and an 8 millimeter robotic trocar was placed under direct visualization. Another 8 millimeter incision was made in the left lateral abdomen, and an 8 millimeter robotic trocar was placed under direct visualization. 0.5% bupivacaine with epinephrine was infiltrated around each port site. The 5 millimeter port was removed, and an 8 mm robotic trocar was placed under direct visualization. The robotic arms were brought up to the patient's bedside and secured to the ports. The camera and instruments were inserted, and I then moved over to the robotic console and took control of the camera and instruments. After careful thorough inspection of the abdominal cavity, I began my dissection at the hernia. A preperitoneal plane was started in the left upper quadrant using scissors with electrocautery. This plane was then developed caudally along the left lateral abdomen and then medially towards the hernia defect. The hernia sac was then reduced and then the preperitoneal plane was continued to the right lateral abdomen until a wide enough pocket was created for the mesh placement. I then measured the hernia size. The hernia measured 3 cm. The fascia was closed using an 0-Stratafix running suture in a vertical fashion. A Bard soft 15 cm x 10 cm mesh was then placed within the preperitoneal pocket. This was oriented vertically with the mesh centered on the hernia defect. The mesh was then secured at the center and 4 corners using 3-0 Vicryl simple interrupted sutures. The peritoneum was then closed over the mesh using 3 0 V lock running absorbable suture. The repair was inspected, and one final inspection was made around the abdominal cavity. The robotic instruments were then removed, and the robotic arms were disengaged from the trocars. The ports were then removed under direct visualization, the camera was removed, and the pneumoperitoneum was released. The skin of the incisions was then approximated using 4-0 Monocryl subcuticular suture. Exofin glue was then applied on top. The patient was then awakened from anesthesia, extubated, and transferred to recovery. Implants Bard soft mesh 15 cm x 10 cm Estimated Blood Loss 5 Complications No immediate complications Condition Stable Disposition Same day [facility] Billing Surgery - Charge Forward: Surgery Billing
[2024-10-17] MEDS: LACTATED RINGERS 1,000 ML 30 ML IV CONT (12:07)
[2024-10-17] MEDS: oxyCODONE HCL (*CRX) 5 MG TAB IR PO (12:32)
== END 2024-10-17 13:20 | disposition home or self-care (01) ==
PROVIDERS: PCP Family Medicine; Visit Provider Surgery
PROC: (CPT 49593; principal; 2024-10-17 09:30)
DX: K42.9 Umbilical hernia without obstruction or gangrene (principal); F12.90 Cannabis use, unspecified, uncomplicated
CPT/HCPCS: 49593; S2900; A9270; C1781; J0690; J1100; J1650; J1885; J2003; J2250; J2405; J2704; J3010; J7120

== ENCOUNTER 2024-12-15 13:23 | Outpatient (CLI) | payer OTHER, SELFPAY ==
--- NOTE | ~2024-12-15 | CT_ITS ---
EXAMINATION: CTA chest DATE: 12/16/2024 19:20 TAR POT MAN INDICATION: Aortic ectasia TECHNIQUE: Computed tomographic angiography (CTA) of the chest was performed with 100 mL Omnipaque-35 0 intravenous contrast. The dose-length product was 1184.79 mGy-cm. Maximum intensity projection 3D-r econstructions of the aorta and other arteries were constructed by the technologist on a separate wor kstation. COMPARISON: 01/26/2023 FINDINGS/OBSERVATIONS: PULMONARY ARTERIES: No filling defect is identified within the main or proximal pulmonary artery. The main pulmonary artery is not enlarged. THORACIC AORTA: No aneurysmal dilatation or dissection is present. The great vessels are intact. LUNGS: The lungs are clear MEDIASTINUM: No morphologically suspicious or pathologically enlarged lymph nodes are identified with in the mediastinum or bilateral axilla. BONES OF THE CHEST: No acute fracture. No significant degenerative disease. No lytic or blastic lesions. HEART: The heart is of normal size, without pericardial effusion. IMPRESSION: No pulmonary embolus. No thoracic aortic dissection. No aneurysmal dilatation is identified within the thoracic aorta, as detailed above. Reviewed, dictated and finalized at location A. POT MAN IMPRESSION: No pulmonary embolus. No thoracic aortic dissection. No aneurysmal dilatation is identified within the thoracic aorta, as detailed a francheska.
--- OUTSIDE RECORDS SUMMARY | 2024-12-15 13:30 | XMS_ITS | Referral Summary ---
Author Organization [email or web address] Address [address] [place] [address] Care Team Providers Care In Service Educator Name Role Phone Carito Romeo MD Primary Care Provider [phone] Source Comments [email or web address],non-owned Affiliates and Associated Physician Practices is amultiple site organization consisting of ambulatory clinics and hospital sitesin [place], [place], [place] and [place]. This disclosure is being madepursuant to the Care Everywhere program and may not contain all information available regarding this patient. Last updated 18.[email or web address] Allergies Active Allergy Reactions Criticality Noted Date Comments Sulfacetamide Urticaria Medium 08/25/2023 Medications * Be aware that medications may not be up to date on this document. Alwaysverify current medications with the patient. Medication Sig Dispensed Refills Start Date End Date Status Eliquis 2.5 MG tablet Take 1 (one) tablet by mouth 2 times daily 03/18/2023 Active lisinopril (Prinivil; Zestril) 10 MG tablet Take 1 (one) tablet by mouth once daily 07/06/2023 Active omeprazole (PriLOSEC) 40 MG capsule Take 1 (one) capsule by mouth 2 times daily 06/16/2023 Active PARoxetine CR 24hr (Paxil-Cr) 37.5 MG tablet Take 1 (one) tablet by mouth every morning 08/03/2023 Active hydrOXYzine HCl (Atarax) 10 MG tabletIndications:A nxiety Take 1 (one) tablet by mouth 3 times daily as needed (anxiety) Reasons: Feeling Anxious 90 tablet 08/25/2023 Active cloNIDine (Catapres) 0.1 MG tablet Take 1 (one) tablet by mouth 2 times daily as needed (SBP >160 or DBP >110) 6 tablet 08/25/2023 Active chlordiazePOXIDE (Librium) 25 MG capsuleIndications: Alcohol Withdrawal Syndrome Take 1 (one) capsule by mouth 2 times daily as needed for Anxiety or Agitation (alcohol withdrawal) Take 1 tablet TID prn x1 days, then BID x2 days, then QD x2 days Reasons: Alcohol Withdrawal Syndrome 9 capsule 08/25/2023 Active Social History Tobacco Use Types Packs/Day Years Used Date Smoking Tobacco: Never Smokeless Tobacco: Never Tobacco Cessation:Counseling Given: Not Answered Alcohol Use Standard Drinks/Week Comments Yes 0 (1 standard drink = 0.6 oz pur e alcohol) 5 drinks daily AUDIT-C Answer Date Recorded Q1: How often do you have a drink containing alcohol? 4 or more times a week 08/25/2023 Q2: How many drinks containi ng alcohol do you have on a typical day when you are drinking? 5 or 6 Q3: How often do you have si x or more drinks on one occasion? Monthly 08/25/2023 Sex and Gender Information Value Date Recorded Sex Assigned at Not on file Gender Identity Not on file Sexual Orientation Not on file Last Filed Vital Signs Vital Sign Reading Time Taken Comments Blood Pressure 146/114 08/25/2023 9:45 PM CDT Pulse 105 08/25/2023 9:55 PM CDT Temperature 36.6 C (97.8 F) 08/25/2023 3:30 PM CDT Respiratory Rate 13 08/25/2023 9:55 PM CDT Oxygen Saturation 97% 08/25/2023 9:55 PM CDT Inhaled Oxygen Concentration - - Weight 122.6 kg (270 lb 3.2 oz) 023 10:01 AM CDT Height 193 cm (6' 4 ) 08/25/2023 3:30 PM CDT Body Mass Index 32.89 08/25/2023 10:01 AM CDT Plan of Treatment Not on file Care Teams In Service Educator Relationship Specialty Start Date End Date Carito Romeo MD [address] [place] [id number] PCP - General 01/11/23
--- OUTSIDE RECORDS SUMMARY | 2024-12-15 13:30 | XMS_ITS | Patient Health Summary ---
Author Organization [facility] Address [address] [place] [address] Care Team Providers Care Purse Framer Name Role Phone Carito Romeo MD Primary Care Provider [phone] Note from [facility],non-owned Affiliates and Associated Physician Practices is amultiple site organization consisting of ambulatory clinics and hospital sitesin [place], [place], [place] and [place]. This disclosure is being madepursuant to the Care Everywhere program and may not contain all information available regarding this patient. Last updated 18.[facility] Allergies * Sulfacetamide(Urticaria) -Medium Criticality Medications * Be aware that medications may not be up to date on this document. Alwaysverify current medications with the patient. * Eliquis 2.5 MG tablet(Started 03/18/2023) Take 1 (one) tablet by mouth 2 times daily * lisinopril (Prinivil; Zestril) 10 MG tablet(Started 07/06/2023) Take 1 (one) tablet by mouth once daily * omeprazole (PriLOSEC) 40 MG capsule(Started 06/16/2023) Take 1 (one) capsule by mouth 2 times daily * PARoxetine CR 24hr (Paxil-Cr) 37.5 MG tablet(Started 08/03/2023) Take 1 (one) tablet by mouth every morning * hydrOXYzine HCl (Atarax) 10 MG tablet(Started 08/25/2023) Take 1 (one) tablet by mouth 3 times daily as needed (anxiety) Reasons: Feeling Anxious * cloNIDine (Catapres) 0.1 MG tablet(Started 08/25/2023) Take 1 (one) tablet by mouth 2 times daily as needed (SBP >160 or DBP >110) * chlordiazePOXIDE (Librium) 25 MG capsule(Started 08/25/2023) Take 1 (one) capsule by mouth 2 times daily as needed for Anxiety or Agitation (alcohol withdrawal)Take 1 tablet TID prn x1 days, then BID x2 days, then QD x2 days Reasons: Alcohol Withdrawal Syndrome Social History Tobacco Use Types Packs/Day Years [...] Mass Index 32.89 08/25/2023 10:01 AM CDT Procedures * CARDIAC EKG ORDER(Performed 08/26/2023) * TROPONIN-I HIGH SENSITIVE REFLEX 1HOUR(Performed 08/25/2023) * EKG 12-LEAD(Performed 08/25/2023) Performed for Diaphoresis * TROPONIN-I HIGH SENSITIVE BASELINE + 1HR(Performed 08/25/2023) * PT-INR(Performed 08/25/2023) * COMPREHENSIVE METABOLIC PANEL(Performed 08/25/2023) * CBC W AUTO DIFFERENTIAL(Performed 08/25/2023) * PATH CONSULT REFER SPECIMEN(Performed 03/26/2009) Results * CARDIAC EKG ORDER (08/26/2023 8:35 PM CDT) Narrative 08/26/2023 8:35 PM CDT Ordered by an unspecified provider. Scanned Document CARDIAC SERVICES ORD ERABLES * TROPONIN-I HIGH SENSITIVE REFLEX 1HOUR (08/25/2023 7:18 PM CDT) Pathologist [facility] Troponin I High Sensitive 7 <=35 ng/L 08/25/2023 8:10 PM CDT [facility] Delta Troponin I HS 4 <6 ng/L 08/25/2023 8:10 PM CDT [facility] Blood BLOOD SPECIMEN / Unknown Venipuncture / Unknown 08/25/2023 7:18 PM CDT 08/25/2023 7:44 PM CDT Junior Betancourt PA-C LAB - CHEMISTRY OR DERABLES Performing Organization Address City/[facility]/ZIP Co de Phone Number [facility] [address] [phone] * EKG 12-LEAD (08/25/2023 5:53 PM CDT) Pathologist [facility] Ventricular Rate 117 BPM [facility] Atrial Rate 117 BPM [facility] P-R Interval 176 ms [facility] QRS Duration ms 92 ms [facility] Q-T Interval ms 340 ms [facility] QTC Calculation (Bezet) 474 ms [facility] Calculated R [place] 44 degrees [facility] Calculated T [place] 41 degrees [facility] Interpretation EKG Sinus tachycardia Otherwise normal ECG No previous ECGs available Confirmed by IKER RIVERA MD ([id number]) on 08/26/2023 12:25:30 PM [facility] 08/25/2023 5:53 PM CDT 08/26/2023 12:25 PM CDT Junior W Best PA-C ECG ORDERABLES [facility] * TROPONIN-I HIGH SENSITIVE BASELINE + 1HR (08/25/2023 5:53 PM CDT) [facility] Troponin I High Sensitive 3 <=35 ng/L 08/25/2023 6:26 PM CDT [facility] Blood BLOOD SPECIMEN / Unknown Venipuncture / Unknown 08/25/2023 5:53 PM CDT 08/25/2023 6:01 PM CDT Junior Betancourt PA-C LAB - CHEMISTRY OR DERABLES Performing Organization Address [facility] Co de Phone Number [facility] [address] [place] [address] * PT-INR (08/25/2023 4:04 PM CDT) [facility] PT 13.0 12.1 - 14.8 sec 08/25/2023 4:21 PM CDT [facility] INR 1.0 0.9 - 1.1 08/25/2023 4:21 PM CDT [facility] Blood BLOOD SPECIMEN / Unknown Venipuncture / Unknown 08/25/2023 4:04 PM CDT 08/25/2023 4:08 PM CDT Narrative [facility] - 08/25/2023 4:21 PM CDT Conventional Warfarin Anticoagulant Therapy: INR Reference Range: 2.0-3.0 Intensive Warfarin Anticoagulant Therapy: INR Reference Range: 2.5-3.5 Junior Betancourt PA-C LAB - COAGULATION ORDERABLES Performing Organization Address [facility]/ZIP Co de Phone Number [facility] [address] [place] [address] * (ABNORMAL) CBC W AUTO DIFFERENTIAL (08/25/2023 4:04 PM CDT) [facility] WBC 8.8 4.4 - 10.7 x10E9/L 08/25/2023 4:11 PM CDT [facility] WBC Corrected 08/25/2023 4:11 PM CDT [facility] RBC 5.12 3.80 - 5.40 x10E12/L 08/25/2023 4:11 PM [facility] Hemoglobin 13.7 12.0 - 17.6 gm/dL 08/25/2023 4:11 PM [facility] Hematocrit 41.2 35.2 - 51.7 % 08/25/2023 4:11 PM [facility] MCV 80.5(L) 80.7 - 98.3 fl 08/25/2023 4:11 PM [facility] MCH 26.8 26.7 - 34.0 pg 08/25/2023 4:11 PM [facility] MCHC 33.3 30.8 - 35.9 gm/dL 08/25/2023 4:11 PM [facility] Platelet Count 170 153 - 416 x10E9/L 08/25/2023 4:11 PM [facility] RDW-CV 17.0(H) 12.1 - 14.9 % 08/25/2023 4:11 PM [facility] MPV 10.7 9.4 - 12.9 fl 08/25/2023 4:11 PM [facility] Neutrophils % 66.9 44.0 - 73.0 % 08/25/2023 4:11 PM [facility] Lymphocytes % 21.3 20.0 - 43.0 % 08/25/2023 4:11 PM [facility] Monocytes % 11.1 5.0 - 13.0 % 08/25/2023 4:11 PM [facility] Eosinophils % 0.1 0.0 - 6.0 % 08/25/2023 4:11 PM [facility] Basophils % 0.3 0.0 - 2.0 % 08/25/2023 4:11 PM [facility] Immature Granulocytes 0.3 0 - 1 % 08/25/2023 4:11 PM [facility] Neutrophil Absolute 5.91 2.01 - 7.14 x10E9/L 08/25/2023 4:11 PM [facility] Lymphocytes Absolute 1.88 1.07 - 3.94 x10E9/L 08/25/2023 4:11 PM [facility] Monocytes Absolute 0.98 0.26 - 1.07 x10E9/L 08/25/2023 4:11 PM CDT [facility] Eosinophils Absolute 0.01 0 - 0.47 x10E9/L 08/25/2023 4:11 PM CDT [facility] Basophils Absolute 0.03 0 - 0.08 x10E9/L 08/25/2023 4:11 PM CDT [facility] Immature Granulocytes Absolute 0.03 0.00 - 0.06 x10E9/L 08/25/2023 4:11 PM CDT [facility] nRBC Auto 0 /100 WBC 08/25/2023 4:11 PM CDT [facility] Blood BLOOD SPECIMEN / Unknown Venipuncture / Unknown 08/25/2023 4:04 PM CDT 08/25/2023 4:08 PM CDT Junior Betancourt PA-C LAB - HEMATOLOGY O RDERABLES [facility] [address] [place] [address] * (ABNORMAL) COMPREHENSIVE METABOLIC PANEL (08/25/2023 4:04 PM CDT) Glucose 95 70 - 105 mg/dL 08/25/2023 4:32 PM [facility] Sodium 139 136 - 145 mmol/L 08/25/2023 4:32 PM CDT [facility] Potassium 4.1 3.5 - 5.1 mmol/L 08/25/2023 4:32 PM [facility] Chloride 99 98 - 107 mmol/L 08/25/2023 4:32 PM CDT [facility] CO2 20(L) 22 - 29 mmol/L 08/25/2023 4:32 PM CDT [facility] Calcium 10.2 8.4 - 10.4 mg/dL 08/25/2023 4:32 PM [facility] Anion Gap 20(H) 6 - 16 mmol/L 08/25/2023 4:32 PM CDT [facility] BUN 11 5.3 - 18.7 mg/dL 08/25/2023 4:32 PM CDT [facility] Creatinine 0.89 0.72 - 1.25 mg/dL 08/25/2023 4:32 PM CDT [facility] Alkaline Phosphatase 119 40 - 150 U/L 08/25/2023 4:32 PM CDT [facility] ALT 70(H) 0 - 55 U/L 08/25/2023 4:32 PM CDT [facility] AST 59(H) 5 - 34 U/L 08/25/2023 4:32 PM CDT [facility] Protein Total 8.8(H) 6.4 - 8.3 gm/dL 08/25/2023 4:32 PM CDT [facility] Albumin 4.3 3.4 - 5.0 gm/dL 08/25/2023 4:32 PM CDT [facility] Bilirubin Total 1.5(H) 0.2 - 1.2 mg/dL 08/25/2023 4:32 PM CDT [facility] eGFR by CKD-EPI >90 >=90 mL/min/1.7 3 m2 08/25/2023 4:32 PM CDT [facility] Blood BLOOD SPECIMEN / Unknown Venipuncture / Unknown 08/25/2023 4:04 PM CDT 08/25/2023 4:08 PM CDT Junior Betancourt PA-C LAB - CHEMISTRY OR DERABLES [facility] [address] [place] [address] * PATH CONSULT REFER SPECIMEN (03/26/2009 2:32 PM CDT) Result CASE NUMBER [id number] [facility] PATH REPORT Comment: ORDERING PHYSICIAN JESSICA JANE SPECIMEN TYPE Muscle Biopsy-Medial rectus-left CLINICAL HISTORY The patient is a 28-year-old man with monocular exotropia, diplopia of the left eye, for a left lateral rectus recession, medial rectus resection with resected muscle being sent to pathology. GROSS DESCRIPTION Submitted fresh, on ice, wrapped in moistened gauze, without orientation, is a 1 x 0.2 x 0.2 cm portion of red-brown skeletal muscle. The specimen is submitted in toto as left medial rectus. MICROSCOPIC DESCRIPTION 1 H/E, 1 trichrome, 1 PAS, 1 PAS-diastase, 1 oil red O, 1 ATPase pH 4.3, 1 ATPase pH 4.6, 1 ATPase pH 9.4, 1 NADH. Sections of the specimen submitted as left medial rectus muscle show vascular fibroconnective tissue without skeletal muscle. (CAV/ld) DIAGNOSIS DIAGNOSIS CONNECTIVE TISSUE, LEFT MEDIAL RECTUS -FIBROCONNECTIVE TISSUE, INSUFFICIENT FOR EVALUATION FOR MITOCHONDRIAL ABNORMALITIES BY LIGHT MICROSCOPY. COMMENT The portion of the specimen submitted for electron microscopy will be evaluated by light microscopy to determine if there are skeletal muscle fibers included in this portion of the biopsy. (CAV/ld) This case has been personally reviewed and interpreted by the attending (teaching) pathologist. *ELECTRON MICROSCOPY (EM ) Four [id number]-toluidine-blue stained sections of the specimen submitted from the extraocular muscle are reviewed by light microscopy. None contain skeletal muscle. (CAV/lw) Product Owner ANDREINA ANDERS PATHOLOGIST Amber Mistry M.D. ELECTRONICALLY VARGHESE AMBER MISTRY MISCELLANEOUS SAMPLES / Unknown 03/26/2009 2:32 PM CDT 03/26/2009 2:33 PM CDT Historical Provider LAB - PATHOLOGY/C YTOLOGY ORDERABLES [facility] PATH REPORT Care Teams Purse Framer Relationship Specialty Start Date End Date Carito Romeo MD [address] [place] [address] PCP - General 01/11/23
--- OUTSIDE RECORDS SUMMARY | 2024-12-15 13:30 | XMS_ITS | Clinical Summary ---
Author Organization [facility] [employer] Address [address] [place] [address] Care Team Providers Care Project Management Engineer Name Role Phone Carito Romeo MD Primary Care Provider [phone] Source Comments [facility],non-owned Affiliates and Associated Physician Practices is amultiple site organization consisting of ambulatory clinics and hospital sitesin [place], [place], [place] and [place]. This disclosure is being madepursuant to the Care Everywhere program and may not contain all information available regarding this patient. Last updated 18.[facility] Allergies Active Allergy Reactions Criticality Noted Date [...] 08/25/2023 10:01 AM CDT Plan of Treatment Health Maintenance Due Date Last Done Comments COLOGUARD (AGES 45-75) - COL ON CA SCREENING 1978 COLON MONITORING 1978 COLONOSCOPY - COLON CA SCREENING 1978 CT COLONOGRAPHY - COLON CA SCREENING 1978 Colorectal Cancer Screening 1978 FIT - COLON CA SCREENING 1978 FLEX SIG - COLON CA SCREENING 1978 LIPID TESTING 1978 HIV SCREENING 1993 HEPATITIS C SCREENING 12/01/1996 DTAP/TDAP/TD VACCINES (1 - Tdap) 1997 HEPATITIS B VACCINE (1 of 3 - 19+ 3-dose series) 1997 COVID-19 VACCINE (3 - 2023-2 5 season) 2024 01/10/2021, 12/22/2020 INFLUENZA VACCINE (#1) 2024 3, 08/13/2022, 09/18/2021 DEPRESSION SCREENING 11/01/2024 ZOSTER VACCINE (1 of 2) 2028 HIB VACCINE Aged Out No longer eligi ble based on patient's age to complete this topic HPV VACCINE Aged Out No longer eligi ble based on patient's age to complete this topic MENINGOCOCCAL (Group B) VACCINE Aged Out No longer eligible b ased on patient's age to complete this topic MENINGOCOCCAL VACCINE Aged Out No hoa george eligible based on patient's age to complete this topic PNEUMOCOCCAL VACCINE Aged Out No long er eligible based on patient's age to complete this topic Care Teams Project Management Engineer Relationship Specialty Start Date End Date Carito Romeo MD [address] [place] [address] [facility] - General 01/11/23
[2024-12-15 13:51] LABS: Estimated Glomerular Filt Rate > 60
== END 2024-12-15 13:24 | disposition home or self-care (01) ==
LOC: ANHIMG 13:24
PROVIDERS: PCP Family Medicine; Visit Provider Internal Medicine Cardiovascular Disease
DX: I77.819 Aortic ectasia, unspecified site (principal)
CPT/HCPCS: 71275; Q9967

== ENCOUNTER 2025-04-06 19:53 | Emergency (ER) | payer OTHER, SELFPAY ==
--- OUTSIDE RECORDS SUMMARY | 2025-04-06 19:55 | XMS_ITS | Clinical Summary ---
Author Organization [facility] [employer] Address [address] [place] [address] Care Team Providers Care Industrial Registered Nurse Name Role Phone Carito Romeo MD Primary Care Provider [phone] Source Comments [facility] [employer],non-owned Affiliates and Associated Physician Practices is amultiple site organization consisting of ambulatory clinics and hospital sitesin [place], [place], [place] and [place]. This disclosure is being madepursuant to the Care Everywhere program and may not contain all information available regarding this patient. Last updated 18.[facility] [employer] Allergies Active Allergy Reactions Criticality Noted Date Comments Sulfacetamide Urticaria Medium 08/25/2023 Medications * This document contains information received from the source organization and may not represent a complete record from that organization. * Be aware that medications may not be up to date on this document. Alwaysverify current medications with the patient. Eliquis 2.5 MG tablet Take 1 (one) tablet by mouth 2 times daily 3 Active lisinopril (Prinivil; Zestril) 10 MG tablet Take 1 (one) tablet by mouth once daily 3 Active omeprazole (PriLOSEC) 40 MG capsule Take 1 (one) capsule by mouth 2 times daily 3 Active PARoxetine CR 24hr (Paxil-Cr) 37.5 MG tablet Take 1 (one) tablet by mouth every morning 3 Active hydrOXYzine HCl (Atarax) 10 MG tabletIndicatio ns:Anxiety Take 1 (one) tablet by mouth 3 times daily as needed (anxiety) Reasons: Feeling Anxious 90 tablet 3 Active cloNIDine (Catapres) 0.1 MG tablet Take 1 (one) tablet by mouth 2 times daily as needed (SBP >160 or DBP >110) 6 tablet 3 Active chlordiazePOXID E (Librium) 25 MG capsuleIndicati ons:Alcohol Withdrawal Syndrome Take 1 (one) capsule by mouth 2 times daily as needed for Anxiety or Agitation (alcohol withdrawal) Take 1 tablet TID prn x1 days, then BID x2 days, then QD x2 days Reasons: Alcohol Withdrawal Syndrome 9 capsule 3 Active Social History Tobacco Use Types Packs/Day [...] Recorded Sex Assigned at Not on file 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 Gender Identity Not on file Sexual Orientation [...] 10:01 AM CDT Height 193 cm (6' 4) 08/25/2023 3:30 PM CDT Body Mass Index 32.89 08/25/2023 10:01 AM CDT Plan of Treatment Health Maintenance Due Date Last Done Comments OGARIELRD (AGES 45-75) - COL ON CA SCREENING [...] - 2023-2 5 season) 2024 01/10/2021, 12/22/2020 DEPRESSION SCREENING 11/01/2024 INFLUENZA VACCINE (Season Ended) 2025 08/11/2023, 08/13/2022, 09/18/2021 ZOSTER VACCINE (1 of 2) 2028 HIB VACCINE Aged Out No longer eligi ble based on patient's age to complete this topic HPV VACCINE Aged Out No longer eligi ble based on patient's age to complete this topic MENINGOCOCCAL (Group B) VACCINE SHARED DECISION-MAKING Aged Out No longer eligible based on patient's age to complete this topic MENINGOCOCCAL GROUPS A/C/Y/W VACCINE Aged Out No longer eligible b ased on patient's age to complete this topic PNEUMOCOCCAL VACCINE Aged Out No long er eligible based on patient's age to complete this topic Insurance [facility] Care Teams Industrial Registered Nurse Relationship Specialty Start Date End Date Carito Romeo MD [address] [place] [address] PCP - General 01/11/23
[2025-04-06 20:20] VITALS: BP 129/92; PULSE 98; RESP 18; TEMP 36.6; O2SAT 97
--- NOTE | 2025-04-06 20:47 | PC.NURSE ---
pt ambulatory with steady gait to rn relief charge we are going to go ahead and go and see my pcp on wednesday.
--- OUTSIDE RECORDS SUMMARY | 2025-04-06 21:18 | XMS_ITS | Clinical Summary ---
Author Organization [facility] [employer] Address [address] [place] [address] Care Team Providers Care Manufacturing Project Engineer Name Role Phone Carito Romeo MD Primary Care Provider [phone] Source Comments [facility] [employer],non-owned Affiliates and Associated Physician Practices is amultiple site organization consisting of ambulatory clinics and hospital sitesin [place], [place], [place] and [place]. This disclosure is being madepursuant to the Care Everywhere program and may not contain all information available regarding this patient. 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
== END 2025-04-06 21:23 | disposition left against medical advice (07) ==
LOC: ANHED 21:17
PROVIDERS: PCP Family Medicine
DX: M79.605 Pain in left leg (principal)
CPT/HCPCS: 99199